=== PATIENT | male | born 1955 | race Caucasian/White ===

== ENCOUNTER → 2023-08-31 10:41 | Outpatient (REF) | payer MEDICARE, SELFPAY | LOC: RAD 10:41 | PROVIDERS: ATTENDING PHYSICIAN Physician Assistant | DX: Z11.1 Encounter for screening for respiratory tuberculosis (principal) | CPT/HCPCS: 71046 ==

== ENCOUNTER 2023-11-11 09:03 | Inpatient (IN) | payer MEDICARE, SELFPAY ==
[2023-11-10] VITALS (7 sets, daily range): BP systolic 114–193; BP diastolic 67–85; BMI 37.4; BMI 36.9
--- NOTE | 2023-11-10 11:25 | ED.CVA ---
History of Present Illness
General
Chief Complaint: CVA/TIA Symptoms
Source: patient and care tech
Exam Limitations: none
Time Seen by Provider: 11/10/23 10:28
Onset of Stroke Symptoms
Onset of symptoms known: Yes
Date of onset of symptoms: 11/08/23
Travel History
Have you had any contact with someone who has COVID-19?: No
Do you have any symptoms of coronavirus? Fever > 100 degrees, chills, cough, shortness of breath, sore throat, loss of taste or smell, muscle aches, or headache?: No
History of Present Illness
History of Present Illness:
60-year-old male with increased ataxia and difficulty with slurred speech x 2 days. Has been stable over the last 2 days. No unusual headache no new physical weakness or other complaints. Long history of strokes. Patient is on Eliquis. Took his
last dose this morning.
Past History
Past History
ED Past Medical History: CVA, HTN, Hypercholesterolemia, NIDDM and Other (Obstructive sleep apnea, morbid obesity, arthritis, constipation)
ED Past Surgical History: Appendectomy ( with Peritonitis), Orthopedic (Left knee total knee replacement, right total knee replacement) and Other (Hernia repair)
Social History
Tobacco: Non-smoker (Cigar once a month)
Alcohol: None
Drug: None
Personal:
Living: alone
Employment: Not employed
Family History
Family History: Other (Noncontributory)
Review of Systems
Review of Systems
All Other Systems: Not applicable
Constitutional: Denies fever
Respiratory: Reports no symptoms
Cardiac: Reports no symptoms
Phy Exam
Physical Exam
Physical Exam:
GENERAL: Alert and oriented in no apparent distress
EYE: Orbits normal.
NECK: Supple, no thyroid palpable
ENT: Pharynx without erythema
CARDIAC: Regular rate and rhythm without any obvious murmurs.
LUNGS: Clear breath sounds,normal
ABDOMEN: Soft, without focal tenderness or distention
NEUROLOGICAL: Alert and oriented , mild consistent slurred speech. No aphasia. Left arm drift and weakness. Left leg relatively normal. No other focality
SKIN: Warm and dry, no rash or lesion, no discoloration, skin intact.
MUSCULOSKELETAL: No edema,no deformity.Good color
PSYCH: Normal and appropriate interaction.
Course
Orders/Labs/Results
Orders:
Orders
11/10/23 10:36
CT Head W/o Iv Contrast Urgent
Comment:
Reason For Exam: Slurred speech/ataxia. Anticoagulated
Cardiac Monitoring- Treatment ONCE
IV Insert/Care/Rem.- Treatment PRN
11/10/23 10:37
Electrocardiogram (*1) Stat
Reason for Study: Other
Other Reason for Exam: neuro symptoms
EKG- Treatment ONCE
11/10/23 11:27
Basic Metabolic Panel Urgent
Complete Blood Count/With Diff Urgent
PTT Urgent
Prothrombin Time Urgent
11/10/23 12:20
[facility] [place] [facility] [facility] Routine
Comment:
Reason For Exam: ataxia, dysarthria
OK for patient to be off Cardiac Monitoring for MRI: Yes
Recent pill cam endoscopy?: No
11/10/23 12:59
MR Brain Without Contrast Routine
Reason For Exam: ataxia, dysarthria
OK for patient to be off Cardiac Monitoring for MRI: Yes
Recent pill cam endoscopy?: No
11/10/23 13:03
Admit/Transfer Patient As Directed
Co-Sign Provider:
Level of Care: Observation services
Assign to:: Telemetry
Physician / Group: Bhumi
Diagnosis: Acute stroke
Reason for Telemetry: CVA/TIA
Date to Stop Telemetry: 11/13/23
Time to Stop Telemetry: 11:00
11/10/23 13:06
Code Status As Directed
Resuscitation Status: Full Code
11/11/23 06:00
Cardiovascular Evaluation IN AM
Hemoglobin A1c [Glycohemoglobin (HgbA1c)] IN AM
11/13/23 11:00
DC Protocol for Telemetry ONCE
Abnormal Lab Results
11/10/23
11:27
RBC 4.67 L 10^6/uL
(4.70-6.10)
MPV 10.5 H fL
(7.4-10.4)
PT 15.5 H Sec
(11.4-14.6)
BUN 42 H mg/dl
(9-20)
Creatinine 1.8 H mg/dL
(0.7-1.3)
Glucose 175 H mg/dl
(70-99)
11/10/23 11:27
11/10/23 11:27
Vital Signs
Initial and Last Documented VS:
Initial Vital Signs
Temp Pulse Resp BP Pulse Ox
98.4 F 65 18 133/81 95
11/10/23 10:21 11/10/23 10:21 11/10/23 10:21 11/10/23 10:21 11/10/23 10:21
Last Documented Vital Signs
Temp Pulse Resp BP Pulse Ox
98.4 F 55 20 139/85 97
11/10/23 10:21 11/10/23 12:30 11/10/23 12:30 11/10/23 12:05 11/10/23 12:30
MDM/Problems Addressed
Differential Diagnosis Includes:
Symptoms consistent with new CVA however 2 days old and on DOAC. No acute treatment. Labs CT and will require admission for further care and evaluation.
*Pulse Oximetry
Patient hypoxic: no
*EKG
Interpreted by ED Provider?: Yes
Interpretation: abnormal
Comparison EKG: changes noted
Heart Rate: 59
Rate: bradycardiac
Rhythm: sinus
[place]: normal axis
Interval: first degree heart block
QRS Pattern: normal QRS
Ischemia: no ischemia
*Critical Care Note
Total Time (30-74mins, 75-104mins- exclusive of procedures): Not Applicable
Data Reviewed
Review of Other/Old Records Reveals: Labs, Records, Radiology Studies and Discharge Summary
ED Attending Note
-
Portions of this chart may have been created with voice recognition software.� Occasional wrong word or��sound alike� substitutions may have occurred due to the inherent limitations of voice recognition software.
Discharge Plan
Departure
Patient Disposition: Admit
Date of Disposition: 11/10/23
Time of Disposition: 12:07
Presentation/result/management discussed w/ accepting MD/DO: Hospitalist
Discharge Problem:
Ataxia/dysarthria, Suspect subacute CVA
Interventions
Interventions:
*General Assessment Last Done: 11/10/23 11:12
ED- Fall Risk Assessment Last Done: 11/10/23 11:13
*ED COVID-19 Vaccine History Last Done: 11/10/23 11:12
ED- Pulmonary Assessment Last Done: 11/10/23 11:13
ED- Neurological Assessment Last Done: 11/10/23 11:13
ED- Cardiac Assessment Last Done: 11/10/23 11:16
--- NOTE | 2023-11-10 11:26 | CON.NEURO4 ---
Addendum entered and electronically signed by Amado Keller MD 11/10/23 15:44:
I saw and evaluated the patient and reviewed neurofibrillary and agree denying the following comments:
68-year-old male with previous history of previous ischemic stroke, atrial fibrillation, diabetes, hyperlipidemia, obesity presented to hospital with approximately 2 days of slurred speech, balance difficulties and ataxia.
He has been compliant with aspirin as well as Eliquis twice daily no recent head or neck injuries.
Is been started on isoniazid for latent TB diagnosed on positive QuantiFERON test.
No recent bleeding issues, reports some occasional headaches and upper neck pain..
Neurologic examination shows moderate dysarthria, left arm downward drift
MRI brain shows an acute stroke in the right wicho ischemic no hemorrhage
Moderate to severe white matter ischemic disease with chronic stroke in the right ag radiata
Assessment: Most likely this is a stroke due to small vessel disease given the characteristic location in the wicho and characteristic risk factors of diabetes obesity hyperlipidemia. He does not classically embolic appearing stroke and this was
mechanical and this is unlikely an Eliquis failure. Unfortunately clopidogrel interacts with his isoniazid use for latent TB, and I do not feel that ticagrelor would be a great option for him to take together with Eliquis. He is largely maximized
on medical therapy as he is noncompliant with 80 mg atorvastatin 5 mg twice daily Eliquis and 81 mg aspirin.
Recommendations
-Hold Eliquis and restart on 11/11 at same dosing
-Continue aspirin 81 mg daily given per protocol interaction isoniazid and I do not feel that ticagrelor would be good option due to bleeding risks. Will consider aspirin/dipyramidoll but this has risks of headache commonly
-PT OT speech therapy
-Check carotid ultrasound and transthoracic echocardiogram
-Goal normotension and normoglycemia
Will follow
Original Note:
Consultation - Neurology 4
-
CONSULTING PHYSICIAN: Dr. Keller
REFERRING PHYSICIAN: Dr. Quintanilla
DICTATED BY: COLUMBA Hampton
DATE/TIME OF REQUEST: 11/10/2023
DATE/TIME OF CONSULTATION: 11/10/2023 1120
Reason for Consultation: slurred speech and ataxia
History of Present Illness:
This is a 68 year old male patient with a past medical history of stroke chronic left sided weakness and ambulates with cane, PAF on Eliquis, hyperlipidemia, NIDDM, JOAQUÍN, and arthritis who presented to the ER today with slurred speech and ataxia
starting approximately 2 days ago. He does admit that he is not exactly sure of onset, daily aid that is with him today noticed some speech changes and worsening of balance about 2 days ago but was more obvious today. He denies headache, trouble
with vision of dizziness, He does admit to some mild swallowing difficulty. He believes that when ambulating he is now leaning more towards the right and aide reports that it seems that speech is delayed as well as slurred. At baseline he is
fairly independent. He lives alone but does have daily help form 9-2. He denies any missed doses of Eliquis or ASA. He denies any recent illness.
Of note he was recently diagnosed with latent TB found on positive QuantiFERON TB Gold test. He was started on Isoniazid and Pyridoxine. Over the past month Trazodone was also discontinued and started on nightly Benadryl.
Past Medical History: strokes, PAF, HTN, Hypercholesterolemia, CHF, NIDDM, Other (Obstructive sleep apnea, morbid obesity, arthritis, constipation), latent TB, chronic kidney disease, insomnia, granulomatous perifolliculitis
Past Surgical History:
Appendectomy (with Peritonitis), Orthopedic (Left knee total knee replacement, right total knee replacement),(Hernia repair), RCEA
Social History
Tobacco: Non-smoker (Cigar once a month)
Alcohol: None
Drug: None
Personal:
Living: alone, with daily aid
Employment: Not employed
Family History:
Father-CAD, PAD, hypertension, diabetes
Mother- diabetes, arthritis, hypertension, CAD
Allergies: oxycodone
Home Medications: see below
Review of Symptoms:
Patient denies any fever, headache, chest pain, shortness of breath, GI or symptoms.
Vital Signs: see below
Physical Exam:
The patient is afebrile, heart sounds S1 and S2 are regular, no dyspnea
NIH Stroke Scale:
Given 3 points on NIH scale for mild dysarthria, LUE drift and left upper extremity ataxia
Neurologic Examination:
The patient is awake, alert and oriented x 3. He is able to follow commands and answer questions appropriately. There is dysarthia and mildly delayed speech. On cranial nerve assessment, pupils are 3 mm bilateral, round and reactive to light and
accommodation. Visual barron are full. Extraocular movements are intact. Facial sensations are intact and bilaterally symmetrical, there is no facial asymmetry. Hearing is intact bilaterally to normal conversation volume. Tongue palate and uvula are
midline. Sternocleidomastoid strengths are full bilaterally. Motor strengths are 5/5 bilateral lower extremities 4+/5 RUE, 5/5 RUE on medical research Gilbert scale. There is (+) LUE drift, no other drift noted no involuntary movement noted. Deep
tendon reflexes are trace bilateral upper and lower extremities and Babinski is absent bilaterally. Sensations of pain, touch, temperature and vibration are intact and bilaterally symmetrical. There was no extinction noted on double simultaneous
stimulation. Coordination is reduced finger to nose LUE.
Lab Results:see below
Neuro Imaging:
CT head (11/10/2023)
There are no acute intracranial abnormalities.
There is a 1.5 cm right-sided lacunar infarct
There is moderate diffuse cortical atrophy with moderate nonspecific white matter changes as described above.
Impression:
DEONTE DIAS is a 68 year old M who has presented to the hospital with slurred speech and ataxia
Differentials for the patient's presentation include acute stroke vs recurrence of stroke symptoms. Not likely TIA as symptoms have been ongoing for at least 2 days.
Recommendations:
-check MRI brain without contrast to evaluate for stroke
-MRA head/neck
-BP goal is normotension.
-Hold Eliquis until MRI brain results
-ASA 81 mg daily
-may need to consider alternate anticoagulation if acute stroke noted on MRI brain
-echo
-check hemoglobin A1C. Goal is normoglycemia.
-continue atorvastatin 80 mg by mouth daily at bedtime. Check LDL. Goal LDL after stroke is <70.
-PT/OT/ST evaluations
-DVT prophylaxis
-continue neurochecks and NIHSS scale per unit guidelines
Discussed patient care with patient, caregiver and neurologist.
Vital Signs and Labs
-
Vital Signs and Labs:
Vital Signs
Temp Pulse Resp BP Pulse Ox
98.4 F 57 24 123/70 97
11/10/23 10:21 11/10/23 10:52 11/10/23 10:52 11/10/23 11:10 11/10/23 11:13
Lab Results
11/10/23 11:27
11/10/23 11:27
PT 15.5 Sec (11.4-14.6) H 11/10/23 11:27
INR 1.22 11/10/23 11:27
APTT 32.6 Sec (23.4-35.0) 11/10/23 11:27
Sodium 137 mmol/L (135-145) 11/10/23 11:27
Potassium 4.8 mmol/L (3.5-5.1) 11/10/23 11:27
BUN 42 mg/dl (9-20) H 11/10/23 11:27
Glucose 175 mg/dl (70-99) H 11/10/23 11:27
Calcium 9.1 mg/dl (8.4-10.2) 11/10/23 11:27
Medication and Allergies
Home Medications
Home Medications
�Medication �Instructions �Recorded
atorvastatin 80 mg tablet 80 mg PO DAILY High cholesterol 02/04/19
finasteride 5 mg tablet 5 mg PO DAILY prostate 02/04/19
apixaban 5 mg tablet (Eliquis) 5 mg PO BID Blood clot 04/08/20
prevention/tx
docusate sodium 100 mg capsule 300 mg PO DAILY Constipation 04/08/20
metoprolol succinate 50 mg 50 mg PO BID #60 tabs 04/15/20
tablet,extended release 24 hr
polyethylene glycol 3350 17 gram 17 grams PO DAILY 07/23/21
oral powder packet
amlodipine 5 mg tablet 5 mg PO DAILY 11/10/23
aspirin 81 mg tablet,delayed 81 mg PO DAILY 11/10/23
release
cyclobenzaprine 10 mg tablet 20 mg PO DAILYPRN PRN muscle spasms 11/10/23
dapagliflozin propanediol 10 mg 10 mg PO DAILY 11/10/23
tablet (Farxiga)
diphenhydramine HCl 25 mg capsule 25 mg PO HS 11/10/23
(Banophen)
furosemide 20 mg tablet 20 mg PO DAILY 11/10/23
isoniazid 300 mg tablet 300 mg PO HS 11/10/23
lisinopril 40 mg tablet 40 mg PO DAILY 11/10/23
melatonin 10 mg tablet 20 - 30 mg PO HS 11/10/23
nystatin 100,000 unit/gram topical 1 applic topical .2-3 TIMES A WEEK 11/10/23
cream apply to groin
pyridoxine (vitamin B6) 50 mg 50 mg PO HS 11/10/23
tablet
varenicline 0.03 mg/spray nasal 1 spray intranasal Q12H PRN dry 11/10/23
spray (Tyrvaya) eyes
Allergies
Allergies
Allergy/AdvReac Type Severity Reaction Status Date / Time
oxycodone AdvReac Itching, Verified 11/10/23 10:21
Blanching
of skin
[2023-11-10 11:40] LABS: % Basophils 0.7 % (0-2); % Immature Granulocytes 0.3 % (0-0.5); % Lymphocytes 30.2 % (20.5-51.1); % Monocytes 5.3 % (1.7-9.3); % Neutrophils 60.5 % (42.2-75.2); Absolute Basophils 0.1 10^3/uL (0-0.2); Absolute Eosinophils 0.2 10^3/uL (0-0.7); Absolute Lymphocytes 2.1 10^3/uL (1.2-3.4); Absolute Monocytes 0.4 10^3/uL (0.1-0.6); Absolute Neutrophils 4.2 10^3/uL (1.4-6.5); Hematocrit 41.3 % (39.0-52.0); Hemoglobin 14.2 g/dL (13.0-18.0); Mean Corp Hgb Conc. 34.4 g/dL (33.0-37.0); Mean Corpuscular Hgb 30.4 pg (27.0-31.0); Mean Corpuscular Volume 88.4 fL (80.0-94.0); Mean Platelet Volume 10.5 fL (7.4-10.4); Nucleated Red Blood Cells % 0 % (-); Platelet Count 184 10^3/uL (130-400); Red Blood Cell Count 4.67 10^6/uL (4.70-6.10); Red Cell Dist. Width 13.2 % (11.5-14.5); White Blood Cell Count 6.9 10^3/uL (4.8-10.8)
[2023-11-10 11:49] LABS: INR 1.22; PT 15.5 Sec (11.4-14.6)
[2023-11-10 11:50] LABS: APTT 32.6 Sec (23.4-35.0)
[2023-11-10 12:01] LABS: Blood Urea Nitrogen 42 mg/dl (9-20); Calcium 9.1 mg/dl (8.4-10.2); Carbon Dioxide 30 mmol/L (22-30); Chloride 103 mmol/L (98-107); Estimated Creatinine Clearance 54 ml/min; Glucose 175 mg/dl (70-99); Potassium 4.8 mmol/L (3.5-5.1); Sodium 137 mmol/L (135-145); eGFR 40.49
--- NOTE | 2023-11-10 13:08 | HPS.HSE ---
Family Physician
-
Family Physician: Doris Claudio
Chief Complaint
-
Dysarthria, lethargy, gait instability
History of Present Illness
68-year-old male who developed dysarthria about a week ago progressing to gait instability and lethargy. States he has had 7 strokes in the past. Claims he is compliant with all his home medications including aspirin and Eliquis.
We were asked to admit him to the hospital for stroke evaluation.
He lives alone, has an aide 6 days a week. Usually uses a cane to ambulate except when he is out of the house he uses a walker. Denies any recent illnesses. Has had a cough for the past 2 weeks.
Diagnosed with latent tuberculosis in September and has been on isoniazid under the discretion of infectious disease.
Denies any major medication changes. About a month ago his lisinopril dose was doubled from 20 to 40 mg daily.
Medical History
Past Medical History
Past Medical History: Reports Other
Additional Past Medical History:
Multiple strokes -residual left upper extremity weakness
Essential hypertension
DM2
Hyperlipidemia
Paroxysmal atrial fibrillation
CKD 3A
JOAQUÍN
Chronic insomnia
Mild persistent asthma
Nephrolithiasis
Past Surgical History: Reports Appendectomy, Orthopedic and Other
Additional Past Surgical History:
Bilateral total knee replacements
Right shoulder surgery
Hernia repair
Social History
Tobacco: Smoker
Alcohol: Occasional
Drug: None
Personal: Single
Living: Alone
Family History
Family History: Not pertinent
Allergies / Home Medications
Allergies reflects when Allergies were last updated in [facility].
Home Medications with original date entered in [facility]
Allergy/Medication List:
Allergies
Allergy/AdvReac Type Severity Reaction Status Date / Time
oxycodone AdvReac Itching, Verified 11/10/23 10:21
Blanching
of skin
Home Medications
atorvastatin 80 mg tablet 80 mg PO DAILY High cholesterol 02/04/19
finasteride 5 mg tablet 5 mg PO DAILY prostate 02/04/19
apixaban 5 mg tablet (Eliquis) 5 mg PO BID Blood clot prevention/tx 04/08/20
docusate sodium 100 mg capsule 300 mg PO DAILY Constipation 04/08/20
metoprolol succinate 50 mg tablet,extended release 24 hr 50 mg PO BID #60 tabs 04/15/20
polyethylene glycol 3350 17 gram oral powder packet 17 grams PO DAILY 07/23/21
amlodipine 5 mg tablet 5 mg PO DAILY 11/10/23
aspirin 81 mg tablet,delayed release 81 mg PO DAILY 11/10/23
cyclobenzaprine 10 mg tablet 20 mg PO DAILYPRN PRN muscle spasms 11/10/23
dapagliflozin propanediol 10 mg tablet (Farxiga) 10 mg PO DAILY 11/10/23
diphenhydramine HCl 25 mg capsule (Banophen) 25 mg PO HS 11/10/23
furosemide 20 mg tablet 20 mg PO DAILY 11/10/23
isoniazid 300 mg tablet 300 mg PO HS 11/10/23
lisinopril 40 mg tablet 40 mg PO DAILY 11/10/23
melatonin 10 mg tablet 20 - 30 mg PO HS 11/10/23
nystatin 100,000 unit/gram topical cream 1 applic topical .2-3 TIMES A WEEK apply to groin 11/10/23
pyridoxine (vitamin B6) 50 mg tablet 50 mg PO HS 11/10/23
varenicline 0.03 mg/spray nasal spray (Tyrvaya) 1 spray intranasal Q12H PRN dry eyes 11/10/23
Review of Systems
-
History Source: Patient
A 12 point ROS was completed and negative except as noted: Yes
Neurological: Reports Other (Dysarthria, gait instability)
Physical Exam
Vital Signs
Vital Signs
Temp Pulse Resp BP Pulse Ox
98.4 F 57 24 123/70 97
11/10/23 10:21 11/10/23 10:52 11/10/23 10:52 11/10/23 11:10 11/10/23 11:13
Physical Exam
General: Well Developed, Well Nourished, No Apparent Distress and Comfortable
HEENT: NormoCephalic, Anicteric and Moist mucous membranes
Respiratory: Clear
Cardiac: S1/S2 and Regular Rhythm
GI: Soft, Non Tender and Non Distended
Genito-urinary: Deferred by me
Musculoskeletal: No Clubbing, No Cyanosis and No Edema
Skin: Warm and Dry
Neuro: AO x 3 and Other (Left upper extremity motor weakness 4 out of 5 compared to right upper extremity)
Hematologic/Lymphatic: No Lymphadenopathy
Psych: Calm
Laboratory Results
-
11/10/23 11:27
11/10/23 11:27
Laboratory Results
PT 15.5 Sec (11.4-14.6) H 11/10/23 11:27
INR 1.22 11/10/23 11:27
APTT 32.6 Sec (23.4-35.0) 11/10/23 11:27
Impression/Plan
-
Subacute dysarthria, ataxia -rule out new stroke. Brain MRI ordered, to be completed now. CT head shows no acute disease, does show 1.5 cm right-sided lacunar infarct. Moderate diffuse cortical atrophy, moderate nonspecific white matter changes.
Admit to telemetry. Consult neurology. PT/OT. Hold Eliquis pending MRI results. Continue aspirin, atorvastatin.
Discussed with Janay Martines from the neurology service.
DM2 without hyperglycemia -diet controlled. Check hemoglobin A1c.
Essential hypertension -blood pressure currently controlled.
CKD 3 AA -renal function appears to be at baseline.
Hyperlipidemia - continue atorvastatin.
Paroxysmal atrial fibrillation -hold Eliquis as above.
Latent tuberculosis -continue isoniazid, pyridoxine.
JOAQUÍN
Obesity due to excess calories
Full code
--- NOTE | 2023-11-10 16:35 | VATNOTE ---
IV line , US guided by ER staff, came out after MRI; attempted x3 for IV restart; unsuccessful. Will place midline.
[2023-11-10 17:30] LABS: Glucose - Point of Care 113 mg/dl (70-99)
[2023-11-10] MEDS: NOVOLOG FLEXPEN-LOW RESISTANCE SC (17:54)
[2023-11-10] MEDS: LOVENOX 40 MG SC (18:17)
[2023-11-10 20:52] LABS: Glucose - Point of Care 163 mg/dl (70-99)
[2023-11-10] MEDS: TOPROL XL 50 MG PO (21:23)
[2023-11-10] MEDS: INH 300 MG PO (21:23)
[2023-11-10] MEDS: BENADRYL 25 MG PO (21:23)
[2023-11-10] MEDS: VITAMIN B-6 50 MG PO (21:24)
[2023-11-11 03:05] VITALS: BP 149/70
[2023-11-11 05:31] LABS: HDL Cholesterol 25 mg/dl; LDL Cholesterol, Calculated 46 mg/dl; Total Cholesterol 120 mg/dl (50-199); Triglyceride 248 mg/dl (10-149); Very Low Density Lipoprotein 49 mg/dl (0-30)
[2023-11-11 06:00] VITALS: BMI 36.5
[2023-11-11 07:52] VITALS: BP 155/86
[2023-11-11] MEDS: COLACE 300 MG PO (08:17)
[2023-11-11] MEDS: LIPITOR 80 MG PO (08:17)
[2023-11-11] MEDS: AGGRENOX 1 CAPSULE PO ×2 (08:17→17:34)
[2023-11-11] MEDS: PROSCAR 5 MG PO (08:18)
[2023-11-11] MEDS: TOPROL XL 50 MG PO (08:18)
[2023-11-11] MEDS: LASIX 20 MG PO (08:18)
[2023-11-11] MEDS: FARXIGA 10 MG PO (08:18)
[2023-11-11] MEDS: MIRALAX 17 GRAMS PO (08:18)
[2023-11-11 08:21] LABS: Glucose - Point of Care 169 mg/dl (70-99)
--- NOTE | 2023-11-11 08:35 | PTOTSP ---
Speech Language Pathology
Pt known to CAPSULE INSPECTOR at with previous VSE completed x2 with thickened liquids recommended x1. Pt was noncompliant with modifications, but did not develop PNA. OP CAPSULE INSPECTOR therapy provided from 09/28/18-11/21/18. At time of discharge, pt had mild to mod
cognitive deficits, mild expressive aphasia, and mild dysarthria at time of discharge.
Pt seen for speech/language evaluations. Mild-mod dysarthria noted with incoordination. Poor breath support also noted with average maximum phonation time (MPT) 6 seconds. Language evaluated via the Quick Aphasia Battery (QAB), form 1. Pt with
an overall score of 8.94, indicative of overall language skills WFL. Pt with the following scores on the following subtests: word comprehension= 10.00 (WNL); sentence comprehension= 6.67 (mod); word finding= 10.00 (WNL); grammatical construction=
8.88 (mild); speech motor programming= 10.00 (WNL); repetition= 7.92 (mild); reading= 8.33 (mild).
Pt also seen for clinical bedside swallow evaluation. P.O. trials of puree, regular solids, and thin liquids provided. Adequate mastication, bolus formation, and A-P transit noted. No overt signs of aspiration, but pt with a hx of silent
aspiration.
Recommend:
(1) Regular solids/thin liquids
(2) VSE
(3) Aspiration precautions: sit upright, slow rate, single sips
(4) Meds as tolerated
(5) CAPSULE INSPECTOR to continue to follow
[2023-11-11] MEDS: NOVOLOG FLEXPEN-LOW RESISTANCE 1 UNITS SC (08:41)
[2023-11-11 09:30] LABS: Glycohemoglobin (HgbA1c) 7.8 % (4.0-5.6)
--- NOTE | 2023-11-11 11:00 | PTOTSP ---
Speech Language Pathology
VIDEOFLUOROSCOPIC SWALLOWING EXAMINATION (VSE) completed. Overall, pt with mild oropharyngeal dysphagia. Improved from VSE in 2019. Penetration noted at times with aspiration x1 with thin liquids, eliminated with either chin tuck or head turn L.
Recommend:
(1) Regular solids/thin liquids
(2) Aspiration precautions: sit upright, slow rate, single cup sips with use of chin tuck or head turn L, intermittent throat clear/reswallow
(3) Meds as tolerated
(4) DAIRY SCIENCE TEACHER to continue to follow
--- NOTE | 2023-11-11 11:21 | W.PN.NEURO.1 ---
Today's Communication / Plan
-
-Resume apixaban at regular dosing 5 mg twice daily tomorrow
-Check TTE
-Stop aspirin and substitute Aggrenox 25/100 BID, let patient know to watch for new headaches which can be seen as side effect from this medication
-Work on diabetes for stroke prevention
-PT/OT speech therapies
-No barriers to discharge from my standpoint
Neuro Assessment/Plan
Assessment
68-year-old male with a past ministry of obesity, hypertension, Kalosis, hyperlipidemia presented to hospital with acute onset of imbalance and ataxia dysarthria.
Has been compliant with Eliquis and aspirin with no missed doses
MRI brain shows an acute ischemic stroke in the right wicho explaining symptoms.
Carotid ultrasound with no significant carotid stenosis
LDL is 46 triglycerides 248 hemoglobin A1c is 7.8
Given the pattern and location of the stroke on brain MRI this is most likely due to small vessel disease rather than cardioembolic stroke I do not feel it represents an Eliquis failure.
Patient largely maximized on medical therapy with LDL at goal although still does have A1c of 7.8 which could be modifiable risk factor
Patient was compliant with aspirin 81 mg daily and would not be able to take clopidogrel due to interaction with medications for latent TB
Subjective/Objective
Subjective Data
Date of Service: November 11, 2023
No acute events, patient feels like is doing a bit better, speech somewhat improved although not normal, denies headache, discussed medication switch from aspirin to aggrenox and resuming Eliquis tomorrow, discussed causes of stroke.
Objective Data
Vital Signs
Temp Pulse Resp BP Pulse Ox
98.6 F 62 16 155/86 97
11/11/23 07:52 11/11/23 07:52 11/11/23 07:52 11/11/23 07:52 11/11/23 07:52
Lab Results
11/10/23 11:27
11/10/23 11:27
PT 15.5 Sec (11.4-14.6) H 11/10/23 11:27
INR 1.22 11/10/23 11:27
APTT 32.6 Sec (23.4-35.0) 11/10/23 11:27
Sodium 137 mmol/L (135-145) 11/10/23 11:27
Potassium 4.8 mmol/L (3.5-5.1) 11/10/23 11:27
BUN 42 mg/dl (9-20) H 11/10/23 11:27
Glucose 175 mg/dl (70-99) H 11/10/23 11:27
Calcium 9.1 mg/dl (8.4-10.2) 11/10/23 11:27
LDL Cholesterol, Calc 46 mg/dl 11/11/23 04:53
Patient Allergies
oxycodone Adverse Reaction (Verified 11/10/23 10:21)
Itching, Blanching of skin
Review of Systems
-
History Source: Patient
All other systems: Reviewed and negative
Constitutional: No Symptoms
EENT: No Symptoms Reported
Respiratory: No Symptoms
Cardiac: No Symptoms
Abdomen/GI: No Symptoms
Genitourinary: No Symptoms
Musculoskeletal: No Symptoms
Skin: No Symptoms
Neuro: Weakness and Speech Problem
Endocrine: No Symptoms
Hematologic / Lymphatic: No Symptoms
Allergy / Immunology: No Symptoms
Physical Exam
-
General: Comfortable
Eyes: No Ptosis
HEENT: Normocephalic
Neck: No Bruits Bilaterally
Respiratory: Clear to Auscultation
Cardiac: Regular Rhythm
GI: Normal Bowel Sounds
Skin: Unremarkable
Extremities: No Clubbing
Psych: Unremarkable
Extended Neurological Exam
Mood & Affect: Mood Unremarkable and Affect Unremarkable
Attention Span & Concentration: Awake, Alert and Interactive
Memory: Unremarkable
Tremor: Hand Tremor Absent
Involuntary Movement: None
Speech: Quality Unremarkable, Quantity Unremarkable and Dysarthric; Negative Expressive Aphasia or Receptive Aphasia
Cranial Nerve II: Left Eye: Pupillary Reactivity Unremarkable and Pupillary Size Unremarkable
Cranial Nerve II: Right Eye: Pupillary Reactivity Unremarkable and Pupillary Size Unremarkable
Cranial Nerves III, IV, : Extraocular Movement: Extraocular Movement Full in all Directions
Cranial Nerve VII: Facial Symmetry: Other (Left facial weakness)
Muscle Strength, Overall: Other (Left arm 4/5)
Pronator Drift: Drift in Left Upper Extremity
Data Reviewed
-
CT Head: Report Reviewed and Image Reviewed
MRI Head: Report Reviewed and Image Reviewed
MRA Head: Report Reviewed and Image Reviewed
Carotid Ultrasound: Report Reviewed
--- NOTE | 2023-11-11 11:52 | CM ---
Patient seen at bedside, Patient was admitted as OBS/PINEDA status but changed to INP status today. Patient previously lived in a trailer with a ramp for access. Patient states that he plans to return home but is awaiting blood work. CM will return to
review completed assessment.
[2023-11-11 12:26] LABS: Glucose - Point of Care 148 mg/dl (70-99)
[2023-11-11] MEDS: NOVOLOG FLEXPEN-LOW RESISTANCE SC ×2 (12:40→17:41)
--- NOTE | 2023-11-11 13:47 | VNURNOTE ---
Home Health Liaison met with patient at 1230 to discuss [facility] nurse/therapy, visits, schedule and homebound status. Patient is agreeable and understands that visits at home will be 2-3 x per week to assess and teach medical management.
[facility] brochure provided with contact information. Patient is aware that [facility] will contact him for start of care in 1-2 days after discharge from .
[facility] referral completed in [facility].
--- NOTE | 2023-11-11 14:05 | CARDSERVLU ---
Echocardiogram with [facility] completed after protocol screening completed. Allergies verified.
Patent IV site: __R arm midline___
IV site flushed with 0.9% NaCl pre and post administration.
Diluted bolus method utilized to enhance visualization of ventricular garcía.
Total volume given: __3.5__ mL
Patient tolerated all procedures well without complications.
--- NOTE | 2023-11-11 14:09 | W.PN.HOSP.TC ---
Today's Communication/Plan
-
Echocardiogram
Discharge
Assessment / Plan
Assessment / Plan
Gen-AAOx3, NAD, obese
HEENT-NC, AT, anicteric, clear oral mm
Neck-supple
CV-reg, no M, +S1/S2
Lungs-clear B/L
Abd-soft, NT, ND
Ext-no edema
Musculoskeletal-no cyanosis, clubbing
Skin-warm and dry
Neuro-grossly non-focal
Psych-calm, cooperative
Acute stroke -involving the right pontomedullary junction. Brain MRI reviewed. No cerebral vascular stenosis or occlusion noted. Carotid ultrasound noted, no significant occlusion.
Appreciate neurology input. Await transthoracic echocardiogram.
Resume Eliquis starting tomorrow as per neurology. Discontinue aspirin and start Aggrenox.
Discussed with patient importance of lifestyle changes including diet, exercise, weight loss and diabetes/hypertension/lipid control to reduce stroke risk.
DM2 without hyperglycemia -he is on dapagliflozin 10 mg daily at home. Glucose 169 this morning. Hemoglobin A1c 7.8%. Encouraged him to try to lose weight. Can add Januvia 100 mg daily. Follow-up closely with PCP.
Essential hypertension -pressures are relatively high. At home he is on amlodipine, furosemide, lisinopril, metoprolol succinate. Resume home meds.
CKD 3a -renal function appears to be at baseline.
Hyperlipidemia - continue atorvastatin. LDL 46, total cholesterol 120, triglycerides 248, HDL 25.
Paroxysmal atrial fibrillation -resume Eliquis tomorrow.
Latent tuberculosis -continue isoniazid, pyridoxine.
JOAQUÍN
Obesity due to excess calories
Full code
Dispo -anticipate discharge this afternoon if echocardiogram unremarkable. Outpatient follow-up. Patient agreeable. Neurology agrees with plan.
35-minutes spent in discharge process.
Anticipated Discharge: Today
Subjective/Interval History
-
Date of Service: November 11, 2023
Patient seen and examined. No complaints today. Eager to go home this afternoon.
Objective Data
-
Vital Signs:
Vital Signs
Temp Pulse Resp BP Pulse Ox
98.6 F 62 16 155/86 97
11/11/23 07:52 11/11/23 07:52 11/11/23 07:52 11/11/23 07:52 11/11/23 07:52
I&O
11/10/23 11/11/23 11/12/23
06:59 06:59 06:59
Intake Total 600 / 600
Balance 600 / 600
Review of Systems
-
History Source: Patient
All other systems: Reviewed and negative
[2023-11-11 15:22] VITALS: BP 151/69
[2023-11-11] MEDS: NORVASC 5 MG PO (16:00)
[2023-11-11 17:12] LABS: Glucose - Point of Care 147 mg/dl (70-99)
--- NOTE | 2023-11-11 17:25 | W.DS.TRANS ---
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
-
Discharge Instructions:
Discharge Diagnosis/Procedures Acute stroke
Diet Low Fat,Low Cholesterol,Diabetic, Carb
Controlled
Activity As tolerated
Driving Restrictions No driving
Bathing Restrictions None
Instructions:
Stand-Alone Forms:
Changes to Home Medications: Yes
Discharge Medications:
DC Medications w/original date entered in Apartment [facility]
atorvastatin 80 mg tablet 80 mg PO DAILY High cholesterol 02/04/19
finasteride 5 mg tablet 5 mg PO DAILY prostate 02/04/19
apixaban 5 mg tablet (Eliquis) 5 mg PO BID Blood clot prevention/tx 04/08/20
docusate sodium 100 mg capsule 300 mg PO DAILY Constipation 04/08/20
metoprolol succinate 50 mg tablet,extended release 24 hr 50 mg PO BID #60 tabs 04/15/20
polyethylene glycol 3350 17 gram oral powder packet 17 grams PO DAILY Constipation 07/23/21
amlodipine 5 mg tablet 5 mg PO DAILY Blood Pressure 11/10/23
cyclobenzaprine 10 mg tablet 20 mg PO DAILYPRN PRN muscle spasms 11/10/23
dapagliflozin propanediol 10 mg tablet (Farxiga) 10 mg PO DAILY Diabetes 11/10/23
diphenhydramine HCl 25 mg capsule (Banophen) 25 mg PO HS Sleep 11/10/23
furosemide 20 mg tablet 20 mg PO DAILY Fluid Retention/Swelling 11/10/23
isoniazid 300 mg tablet 300 mg PO HS TB 11/10/23
lisinopril 40 mg tablet 40 mg PO DAILY Blood Pressure 11/10/23
melatonin 10 mg tablet 20 - 30 mg PO HS Sleep 11/10/23
nystatin 100,000 unit/gram topical cream 1 applic topical .2-3 TIMES A WEEK apply to groin 11/10/23
pyridoxine (vitamin B6) 50 mg tablet 50 mg PO HS Supplement 11/10/23
varenicline 0.03 mg/spray nasal spray (Tyrvaya) 1 spray intranasal Q12H PRN dry eyes 11/10/23
aspirin 25 mg-dipyridamole 200 mg capsule,ext.release 12 hr multiphase 1 cap PO BID #60 caps 11/11/23
sitagliptin phosphate 100 mg tablet (Januvia) 100 mg PO DAILY #30 tabs 11/11/23
Home Medication Changes
Stop aspirin
Pending Results: No
[2023-11-11] MEDS: LOVENOX 40 MG SC (17:34)
== END 2023-11-11 18:22 | disposition home or self-care (01) | DRG 65 ==
LOC: 3 WEST ACU 09:03
PROVIDERS: Nurse Practitioner Adult Health; ADMITTING PHYSICIAN Hospitalist; CONSULT PHYSICIAN Student in an Organized Health Care Education/Training Program; EMERGENCY PHYSICIAN Emergency Medicine; FAMILY PHYSICIAN Nurse Practitioner Primary Care
DX: I63.9 Cerebral infarction, unspecified (principal); I13.0 Hypertensive heart and chronic kidney disease with heart failure and stage 1 through stage 4 chronic kidney disease, or unspecified chronic kidney disease; I69.354 Hemiplegia and hemiparesis following cerebral infarction affecting left non-dominant side; R27.0 Ataxia, unspecified; R47.1 Dysarthria and anarthria; N18.31 Chronic kidney disease, stage 3a; E11.22 Type 2 diabetes mellitus with diabetic chronic kidney disease; E66.01 Morbid (severe) obesity due to excess calories; E78.00 Pure hypercholesterolemia, unspecified; I44.0 Atrioventricular block, first degree; G47.33 Obstructive sleep apnea (adult) (pediatric); I50.9 Heart failure, unspecified; K59.00 Constipation, unspecified; I48.0 Paroxysmal atrial fibrillation; F51.04 Psychophysiologic insomnia; J45.30 Mild persistent asthma, uncomplicated; M19.90 Unspecified osteoarthritis, unspecified site; F17.200 Nicotine dependence, unspecified, uncomplicated; Z96.653 Presence of artificial knee joint, bilateral; Z60.2 Problems related to living alone; Z68.36 Body mass index [BMI] 36.0-36.9, adult; Z79.01 Long term (current) use of anticoagulants; Z22.7 Latent tuberculosis; Z87.442 Personal history of urinary calculi; Z88.5 Allergy status to narcotic agent; Z79.82 Long term (current) use of aspirin; Z79.84 Long term (current) use of oral hypoglycemic drugs; Z83.3 Family history of diabetes mellitus; Z82.49 Family history of ischemic heart disease and other diseases of the circulatory system
CPT/HCPCS: 70450; 70544; 70551; 74230; 80048; 80061; 82962; 83036; 85025; 85610; 85730; 92523; 92610; 92611; 93005; 93306; 93880; 97162; 97166; 99285; Q9950

== ENCOUNTER 2023-12-23 09:07 | Outpatient (RCR) | payer MEDICARE, SELFPAY | END 2023-12-23 23:59 | disposition home or self-care (01) | LOC: ROT 09:07 | PROVIDERS: ATTENDING PHYSICIAN Nurse Practitioner Primary Care | DX: I69.322 Dysarthria following cerebral infarction (principal); I69.391 Dysphagia following cerebral infarction; R13.13 Dysphagia, pharyngeal phase | CPT/HCPCS: 92523; 92610; 97110; 97112; 97163; 97167 ==

== ENCOUNTER 2023-12-29 11:20 | Emergency (ER) | payer MEDICARE, SELFPAY ==
[2023-12-29 11:49] VITALS: BP 106/69
--- NOTE | 2023-12-29 11:49 | ED.PDOC.TRB ---
ED Provider Triage
-
Patient seen by provider in Triage?: Seen in Triage
68M presenting to ED for decreased PO intake, persistent diarrhea and family reports lethargy worsening over last 1-2 weeks. Increased fatigue without fevers. PCP recommended to come to ED. Patient in NAD, AAO. Labs started. stable for WR
[2023-12-29 12:07] LABS: % Basophils 0.9 % (0-2); % Eosinophils 2.5 % (0-6); % Immature Granulocytes 0.2 % (0-0.5); % Lymphocytes 26.3 % (20.5-51.1); % Monocytes 6.5 % (1.7-9.3); % Neutrophils 63.6 % (42.2-75.2); Absolute Basophils 0.1 10^3/uL (0-0.2); Absolute Eosinophils 0.2 10^3/uL (0-0.7); Absolute Lymphocytes 2.1 10^3/uL (1.2-3.4); Absolute Monocytes 0.5 10^3/uL (0.1-0.6); Absolute Neutrophils 5.1 10^3/uL (1.4-6.5); Hematocrit 46.6 % (39.0-52.0); Hemoglobin 16.2 g/dL (13.0-18.0); Mean Corp Hgb Conc. 34.8 g/dL (33.0-37.0); Mean Corpuscular Hgb 30.8 pg (27.0-31.0); Mean Corpuscular Volume 88.6 fL (80.0-94.0); Nucleated Red Blood Cells % 0 % (-); Platelet Count 188 10^3/uL (130-400); Red Blood Cell Count 5.26 10^6/uL (4.70-6.10); Red Cell Dist. Width 14.5 % (11.5-14.5); White Blood Cell Count 8.1 10^3/uL (4.8-10.8)
[2023-12-29 12:21] LABS: ALT (SGPT) 15 U/L (0-50); AST (SGOT) 24 U/L (17-59); Albumin 4.7 g/dl (3.5-5.0); Alkaline Phosphatase 42 U/L (38-126); Blood Urea Nitrogen 31 mg/dl (9-20); Calcium 9.7 mg/dl (8.4-10.2); Carbon Dioxide 19 mmol/L (22-30); Chloride 109 mmol/L (98-107); Glucose 97 mg/dl (70-99); Potassium 5.1 mmol/L (3.5-5.1); Sodium 140 mmol/L (135-145); Total Bilirubin 1.2 mg/dl (0.2-1.3); Total Protein 7.5 g/dl (6.3-8.2); eGFR 46.64
--- NOTE | 2023-12-29 13:51 | ED.GENMED ---
History of Present Illness
<Susie Fountain PA-C - Last Filed: 12/29/23 20:03>
General
Chief Complaint: Abdominal Symptoms
Source: patient
Exam Limitations: none
Time Seen by Provider: 12/29/23 13:50
Nursing documentation reviewed up to this point in time: agreed with
Travel History
Have you had any contact with someone who has COVID-19?: No
Do you have any symptoms of coronavirus? Fever > 100 degrees, chills, cough, shortness of breath, sore throat, loss of taste or smell, muscle aches, or headache?: No
History of Present Illness
History of Present Illness:
This is a 68-year-old male with a past medical history of A-fib on Eliquis, type 2 diabetes, JOAQUÍN, HTN, HLP presenting to the ER today with concerns of diarrhea and nausea for the past 2 weeks. Patient states that the symptoms started after his
third dose of Trulicity, he just started this medication. He has multiple episodes throughout the day and has tried imodium without relief. Patient denies any abdominal pain, fevers or chills. Patient denies any blood in his stools. Patient does
have a hx of constipation in which he takes a daily bowel regimen but he recently stopped this recently due to the diarrhea. Patient denies any recent antibiotic use or recent travel. Patient states that he has overall been feeling weaker and
lethargic. Of note, patient had a stroke 6 weeks ago and has residual left sided weakness and uses a cane. Patient denies any headache, chest pain, shortness of breath.
Past History
<Susie Fountain PA-C - Last Filed: 12/29/23 20:03>
Past History
ED Past Medical History: CVA, HTN, Hypercholesterolemia, NIDDM and Other (Obstructive sleep apnea, morbid obesity, arthritis, constipation)
ED Past Surgical History: Appendectomy ( with Peritonitis), Orthopedic (Left knee total knee replacement, right total knee replacement) and Other (Hernia repair)
Social History
Tobacco: Non-smoker (Cigar once a month)
Alcohol: None
Drug: None
Personal:
Living: alone
Employment: Not employed
Family History
Family History: Other (Noncontributory)
Review of Systems
<Susie Fountain PA-C - Last Filed: 12/29/23 20:03>
Review of Systems
All Other Systems: ROS reviewed and negative except as documented in HPI and ROS
Phy Exam
<Susie Fountain PA-C - Last Filed: 12/29/23 20:03>
Physical Exam
Physical Exam:
General: Patient is well appearing and in no acute distress; non-toxic
Skin: Warm and dry, no rashes or lesions
Head: Normocephalic, atraumatic
Eyes: Sclera non-icteric. EOMs intact. PERRLA.
Cardiac: Regular rate and rhythm.
Peripheral Vascular: No lower extremity swelling or edema.
Pulm: Normal respiratory effort
Abdomen: No abdominal tenderness to palpation, no palpable masses.
Neuro: CN II-XII intact, no focal neurologic deficits. Patient does have some residual left sided weakness from prior stroke.
Psychiatric: Appropriate mood and affect.
Course
<Susie Fountain PA-C - Last Filed: 12/29/23 20:03>
Orders/Labs/Results
Orders:
Orders
12/29/23 12:00
Complete Blood Count/With Diff Urgent
Comprehensive Metabolic Panel Urgent
12/29/23 14:10
0.9% Sodium Chloride 500 ml [Nss] 500 ml IV BOLUS
12/29/23 14:46
Ondansetron Injectable [Zofran] 4 mg IV NOW STA
Abnormal Lab Results
12/29/23
12:00
Chloride 109 H mmol/L
(98-107)
Carbon Dioxide 19 L mmol/L
(22-30)
BUN 31 H mg/dl
(9-20)
Creatinine 1.6 H mg/dL
(0.7-1.3)
12/29/23 12:00
12/29/23 12:00
Vital Signs
Initial and Last Documented VS:
Initial Vital Signs
Temp Pulse Resp BP Pulse Ox
98.0 F 74 18 106/69 94
12/29/23 11:49 12/29/23 11:49 12/29/23 11:49 12/29/23 11:49 12/29/23 11:49
Last Documented Vital Signs
Temp Pulse Resp BP Pulse Ox
98.0 F 75 18 110/70 95
12/29/23 11:49 12/29/23 15:00 12/29/23 15:00 12/29/23 15:00 12/29/23 15:00
<Ralph Coombs, DO - Last Filed: 12/29/23 14:56>
Orders/Labs/Results
Orders:
Orders
12/29/23 12:00
Complete Blood Count/With Diff Urgent
Comprehensive Metabolic Panel Urgent
12/29/23 14:10
0.9% Sodium Chloride 500 ml [Nss] 500 ml IV BOLUS
12/29/23 14:46
Ondansetron Injectable [Zofran] 4 mg IV NOW STA
Abnormal Lab Results
12/29/23
12:00
Chloride 109 H mmol/L
(98-107)
Carbon Dioxide 19 L mmol/L
(22-30)
BUN 31 H mg/dl
(9-20)
Creatinine 1.6 H mg/dL
(0.7-1.3)
12/29/23 12:00
12/29/23 12:00
Vital Signs
Initial and Last Documented VS:
Initial Vital Signs
Temp Pulse Resp BP Pulse Ox
98.0 F 74 18 106/69 94
12/29/23 11:49 12/29/23 11:49 12/29/23 11:49 12/29/23 11:49 12/29/23 11:49
Last Documented Vital Signs
Temp Pulse Resp BP Pulse Ox
98.0 F 75 18 110/70 95
12/29/23 11:49 12/29/23 15:00 12/29/23 15:00 12/29/23 15:00 12/29/23 15:00
<Susie Fountain PA-C - Last Filed: 12/29/23 20:03>
MDM/Problems Addressed
Differential Diagnosis Includes:
ddx include gastroenteritis, medication reaction, colitis, c diff infection, overuse of laxatives
MDM/Problems Addressed:
diarrhea, nausea, weakness
--------
patient denying medication for nausea at this time
Chronic conditions affecting care:
Stroke, TIA, A-fib on Eliquis, hypertension, lipidemia, diabetes
<NAFISA Cheng Last Filed: 12/29/23 20:03>
*Pulse Oximetry
Patient hypoxic: no
*Critical Care Note
Total Time (30-74mins, 75-104mins- exclusive of procedures): Not Applicable
Data Reviewed
Review of Other/Old Records Reveals: Records (Reviewed ER physician documentation on 11/10/2023)
Source: patient
<NAFISA Cheng Last Filed: 12/29/23 20:03>
Patient Management
Escalation/DeEscalation of care consider admission/obs:
This is a 68-year-old male with a past medical history of A-fib on Eliquis, type 2 diabetes, JOAQUÍN, HTN, HLP presenting to the ER today with concerns of diarrhea and nausea for the past 2 weeks. Patient states he is also felt weaker. Here in the
emergency department, he was given IV fluids. Reevaluation, patient states that he feels significantly better and back to his normal self. Patient did not want to wait to attempt to provide a stool sample here. I advised patient to try to collect
one at home and provided him a lab prescription. Also gave patient return precautions. I suspect his current symptoms are related to the trulicity. 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
medication. Patient in agreement with plan. Patient stable for discharge
ED Attending Note
<Susie Fountain PA-C - Last Filed: 12/29/23 20:03>
ED Attending Note
ED Attending Note:
I have seen and evaluated the patient with a [id number] encounter. I have spoken to the advance practicer provider and involved in the medical history, the physical exam, medical decision making.
Evaluation and management service: agree unless noted differently below.
Results interpretation: agree unless noted differently below.
Focused HPI: 68-year-old male presenting for evaluation of diarrhea for the past several weeks. Patient recently started Trulicity. He started to develop reflux disease which the doctor has already blamed on Trulicity as well. Patient denies any
abdominal pain.
Physical exam: Sitting in bed comfortably. Mildly dry mucous membranes. Abdomen soft and nontender
Medical Decision Making: Given no abdominal pain, discussed low utility in CT. Discussed refraining from Trulicity and speaking to PCP. Will try and obtain stool studies to obtain C. difficile and stool culture.
-
Portions of this chart may have been created with voice recognition software.� Occasional wrong word or��sound alike� substitutions may have occurred due to the inherent limitations of voice recognition software.
<Ralph Coombs DO - Last Filed: 12/29/23 14:56>
ED Attending Note
Patient seen and examined by attending physician: Yes
I performed the substantive portion of visit, reviewed & personally made and approve the management plan that is documented in note by myself or AMANDA.: Yes
ED Attending Note:
I have seen and evaluated the patient with a [id number] encounter. I have spoken to the advance practicer provider and involved in the medical history, the physical exam, medical decision making.
Evaluation and management service: agree unless noted differently below.
Results interpretation: agree unless noted differently below.
Focused HPI: 68-year-old male presenting for evaluation of diarrhea for the past several weeks. Patient recently started Trulicity. He started to develop reflux disease which the doctor has already blamed on Trulicity as well. Patient denies any
abdominal pain.
Physical exam: Sitting in bed comfortably. Mildly dry mucous membranes. Abdomen soft and nontender
Medical Decision Making: Given now abdominal pain, discussed low utility in CT. Discussed refraining from Trulicity and speaking to PCP. Will try and obtain stool studies to obtain C. difficile and stool culture.
Discharge Plan
Departure
Patient Disposition: Home (Routine Discharge)
Date of Disposition: 12/29/23
Time of Disposition: 15:53
Patient with high blood pressure during this ER visit?: No
Condition: Good
Discharge Problem:
Diarrhea
Instructions: Diarrhea, Adult ED, BLOOD PRESSURE
Prescriptions:
No Action
atorvastatin 80 MG tablet
80 mg PO DAILY
finasteride 5 MG tablet
5 mg PO DAILY
Eliquis 5 MG tablet
5 mg PO BID
docusate sodium 100 MG capsule
300 mg PO DAILY
metoprolol succinate 50 MG tablet extended release 24 hr
50 mg PO BID Qty: 60 0RF
polyethylene glycol 3350 17 GRAMS powder in packet
17 grams PO DAILY
cyclobenzaprine 10 mg Tablet
20 mg PO DAILYPRN PRN (Reason: muscle spasms)
amlodipine 5 mg Tablet
5 mg PO DAILY
isoniazid 300 mg Tablet
300 mg PO HS
diphenhydramine HCl [Banophen] 25 mg Capsule
25 mg PO HS
nystatin 100,000 unit/gram Cream
1 applic TOPICAL .2-3 TIMES A WEEK
pyridoxine (vitamin B6) 50 mg tablet
50 mg PO HS
lisinopril 40 mg Tablet
40 mg PO DAILY
melatonin 10 mg Tablet
20 - 30 mg PO HS
dapagliflozin propanediol [Farxiga] 10 mg Tablet
10 mg PO DAILY
Tyrvaya 0.03 mg/spray [place], Metered, Non-Aerosol
1 spray INTRANASAL Q12H PRN (Reason: dry eyes)
furosemide 20 MG tablet
20 mg PO DAILY
aspirin-dipyridamole 25-200 mg Capsule, Er Multiphase 12 Hr
1 cap PO BID Qty: 60 0RF
Januvia 100 mg Tablet
100 mg PO DAILY Qty: 30 0RF
Referrals:
Doris Claudio CRNP [Family Provider] -
Activity Restrictions/Additional Instructions:
Please return emergency department should you develop abdominal pain, fevers, chest pain, shortness of breath, syncopal episodes, or any other signs or symptoms concerning to you.
We have given a prescription for stool sample which you can collect and then take to of the address on the sheet.
Please call your post office manager to schedule follow-up appointment regarding the Trulicity.
Interventions
Interventions:
*ED COVID-19 Vaccine History Last Done: 12/29/23 11:49
*Nursing Disposition Last Done: 12/29/23 16:57
NM-Sitsdk-Hykikvwnse Assessment Last Done: 12/29/23 15:00
Discharge Date and Time
Discharge Date/Time: 12/29/23 16:58
Print Language: [facility]
[2023-12-29 15:00] VITALS: BP 110/70
[2023-12-29] MEDS: NSS 500 IV (15:22)
== END 2023-12-29 16:58 | disposition home or self-care (01) ==
LOC: EMR 11:20
PROVIDERS: Physician Assistant Medical; EMERGENCY PHYSICIAN Student in an Organized Health Care Education/Training Program; FAMILY PHYSICIAN Nurse Practitioner Primary Care
DX: R19.7 Diarrhea, unspecified (principal); I48.91 Unspecified atrial fibrillation; E11.9 Type 2 diabetes mellitus without complications; I10 Essential (primary) hypertension; E78.00 Pure hypercholesterolemia, unspecified; G47.33 Obstructive sleep apnea (adult) (pediatric); E66.01 Morbid (severe) obesity due to excess calories; I69.354 Hemiplegia and hemiparesis following cerebral infarction affecting left non-dominant side; Z79.01 Long term (current) use of anticoagulants; Z90.49 Acquired absence of other specified parts of digestive tract
CPT/HCPCS: 99283; 96360; 80053; 85025

== ENCOUNTER 2024-01-20 10:50 | Outpatient (RCR) | payer MEDICARE, SELFPAY | END 2024-01-20 23:59 | disposition home or self-care (01) | LOC: ROT 10:50 | PROVIDERS: ATTENDING PHYSICIAN Nurse Practitioner Primary Care | DX: I69.322 Dysarthria following cerebral infarction (principal); I69.391 Dysphagia following cerebral infarction; R13.13 Dysphagia, pharyngeal phase; Z73.6 Limitation of activities due to disability | CPT/HCPCS: 92507; 92526; 97010; 97014; 97110; 97112; 97140; 97530; 97535 ==

== ENCOUNTER 2024-02-17 10:06 | Outpatient (RCR) | payer MEDICARE, SELFPAY | END 2024-02-17 23:59 | disposition home or self-care (01) | LOC: ROT 10:06 | PROVIDERS: ATTENDING PHYSICIAN Nurse Practitioner Primary Care | DX: I69.322 Dysarthria following cerebral infarction (principal); I69.391 Dysphagia following cerebral infarction; R13.13 Dysphagia, pharyngeal phase; I69.398 Other sequelae of cerebral infarction; Z73.6 Limitation of activities due to disability | CPT/HCPCS: 92507; 92526; 97010; 97014; 97110; 97112; 97116; 97140; 97530; 97535 ==

== ENCOUNTER 2024-02-24 10:08 | Outpatient (RCR) | payer MEDICARE, SELFPAY | END 2024-02-24 13:05 | disposition home or self-care (01) | LOC: ROT 10:08 | PROVIDERS: ATTENDING PHYSICIAN Nurse Practitioner Primary Care | DX: I69.322 Dysarthria following cerebral infarction (principal); I69.391 Dysphagia following cerebral infarction; R13.13 Dysphagia, pharyngeal phase; Z73.6 Limitation of activities due to disability | CPT/HCPCS: 92507; 92526; 97110; 97112; 97530; 97535 ==

== ENCOUNTER 2024-03-21 16:37 | Observation (INO) | payer MEDICARE, SELFPAY ==
[2024-03-21] VITALS (13 sets, daily range): BP systolic 101–157; BP diastolic 57–97; PULSE 52–61; BMI 38.7
[2024-03-21 11:34] LABS: Glucose - Point of Care 169 mg/dl (70-99)
[2024-03-21 12:28] LABS: % Basophils 0.7 % (0-2); % Eosinophils 1.9 % (0-6); % Immature Granulocytes 0.5 % (0-0.5); % Monocytes 5.8 % (1.7-9.3); % Neutrophils 68.1 % (42.2-75.2); Absolute Basophils 0.1 10^3/uL (0-0.2); Absolute Eosinophils 0.1 10^3/uL (0-0.7); Absolute Lymphocytes 1.7 10^3/uL (1.2-3.4); Absolute Monocytes 0.4 10^3/uL (0.1-0.6); Hematocrit 41.5 % (39.0-52.0); Mean Corp Hgb Conc. 36.1 g/dL (33.0-37.0); Mean Corpuscular Volume 88.5 fL (80.0-94.0); Mean Platelet Volume 10.8 fL (7.4-10.4); Nucleated Red Blood Cells % 0 % (-); Platelet Count 196 10^3/uL (130-400); Red Blood Cell Count 4.69 10^6/uL (4.70-6.10); Red Cell Dist. Width 13.4 % (11.5-14.5); White Blood Cell Count 7.3 10^3/uL (4.8-10.8)
--- NOTE | 2024-03-21 12:28 | ED.GENMED ---
History of Present Illness
<Susie Fountain PA-C - Last Filed: 03/21/24 19:33>
General
Chief Complaint: Dizziness
Source: patient
Exam Limitations: none
Time Seen by Provider: 03/21/24 12:27
Nursing documentation reviewed up to this point in time: agreed with
History of Present Illness
History of Present Illness:
This is a 69-year-old male with past medical history of 7 strokes in the past with chronic left-sided weakness and speech difficulties, A-fib on Eliquis, CHF, hyperlipidemia presenting emergency department today with concerns of dizziness and
lightheadedness. Patient is currently asymptomatic but reports that today when he was sitting in his recliner, he started to feel dizzy, flushed, and lightheaded. Patient states that he went to sit down again and started to feel better but this
episode lasted around 30 min.he denies any chest pain at time, any lyndon the symptoms started rtness of breath. Patient states that he started mild headache as well. Patient states that his symptoms started to resolve without intervention. Patient
states that he has never had a feeling to this before. Denies any fevers or chills, states he has been feeling well the past few days. Denies any nausea or vomiting, changes in his appetite. He is able to walk without difficulty. Patient denies
any feelings of vertigo any visual disturbances.
Past History
<Susie Fountain PA-C - Last Filed: 03/21/24 19:33>
Past History
ED Past Medical History: CVA, HTN, Hypercholesterolemia, NIDDM and Other (Obstructive sleep apnea, morbid obesity, arthritis, constipation)
ED Past Surgical History: Appendectomy ( with Peritonitis), Orthopedic (Left knee total knee replacement, right total knee replacement) and Other (Hernia repair)
Social History
Tobacco: Non-smoker (Cigar once a month)
Alcohol: None
Drug: None
Personal:
Living: alone
Employment: Not employed
Family History
Family History: Other (Noncontributory)
Review of Systems
<Susie Fountain PA-C - Last Filed: 03/21/24 19:33>
Review of Systems
All Other Systems: ROS reviewed and negative except as documented in HPI and ROS
Phy Exam
<Susie Fountain PA-C - Last Filed: 03/21/24 19:33>
Physical Exam
Physical Exam:
General: Patient is well appearing and in no acute distress; non-toxic
Skin: Warm and dry, no rashes or lesions
Head: Normocephalic, atraumatic
Eyes: Sclera non-icteric. EOMs intact. PERRLA. No nystagmus.
Cardiac: Regular rate and rhythm, no murmurs
Peripheral Vascular: No lower extremity swelling or edema.
Pulm: Normal respiratory effort, no wheezes, rales, rhonchi
Abdomen: No abdominal tenderness to palpation
Musculoskeletal: Chronic left-sided weakness noted. No obvious signs of injury or trauma.
Neuro: CN II-XII intact, chronic left-sided weakness noted. Dysarthria. Normal finger-nose, heel burk.
Psychiatric: Appropriate mood and affect.
Course
<Susie Fountain PA-C - Last Filed: 03/21/24 19:33>
Orders/Labs/Results
Orders:
Orders
03/21/24 11:32
Electrocardiogram (*1) Urgent
Reason for Study: Chest Pain
EKG- Treatment ONCE
03/21/24 11:43
COVID-19 Antigen Urgent
Source: Nasal Swab
Complete Blood Count/With Diff Urgent
Comprehensive Metabolic Panel Urgent
Troponin I Urgent
Comment: ADD ON
03/21/24 13:11
Orthostatic VS- Treatment ONCE
03/21/24 13:25
Add On- LAB Urgent
Tests Added?: troponin
03/21/24 14:06
CT Head W/o Iv Contrast Urgent
Comment:
Reason For Exam: headache, dizziness
03/21/24 Dinner
Cholesterol Lowering
At Your Request: Full Participation
Cholesterol Lowering: Sodium, 2 Gram
03/21/24 16:22
Admit/Transfer Patient As Directed
Co-Sign Provider:
Level of Care: Observation services
Assign to:: Telemetry
Physician / Group: sejal
Diagnosis: vasovagal episode
Reason for Telemetry: Arrhythmia
Date to Stop Telemetry: 03/24/24
Time to Stop Telemetry: 11:00
Code Status As Directed
Resuscitation Status: Full Code
PRN Pain Medication Management As Directed
May give lesser potent ordered pain med per pt: Yes
preference::
Protocol:: Medication orders for pain may be administered in a
manner that supports deferring to patient preference
when the pt is:
- Requesting an ordered lesser potent pain medication.
Least to most potent pain medications are defined
as: acetaminophen < NSAID < tramadol < opioids
(morphine, oxycodone, hydromorphone).
- Requesting a lesser dose of the same medication IF
ORDERED.
- Requesting a less intrusive route of administration
if both routes are prescribed by the provider (PO <
IV).
03/21/24 21:20
Apixaban [Eliquis] 5 mg PO BID
Metoprolol Xl [Toprol Xl] 50 mg PO BID
03/21/24 21:20
VTE Contraindication Routine
VTE Mechanical Device Contraindication: Medical Contraindication
Pharmocologic Contraindication: Medical Contraindication
Activity As Directed
Activity Level: As Tolerated
Vital Signs As Directed
Frequency: Per unit guidelines
Ot Eval And Treat Routine
Pt Eval And Treat Routine
Activity Level: As Tolerated
03/21/24 22:00
Diphenhydramine [Benadryl] 25 mg PO HS
Isoniazid [INH] 300 mg PO HS
Melatonin 30 mg PO HS
Pyridoxine [Vitamin B-6] 50 mg PO HS
03/22/24 06:00
Complete Blood Count/With Diff IN AM
Comprehensive Metabolic Panel IN AM
03/22/24 08:00
Amlodipine [Norvasc] 5 mg PO DAILY
Atorvastatin [Lipitor] 80 mg PO DAILY
Dapagliflozin [Farxiga] 10 mg PO DAILY
Docusate Sodium [Colace] 300 mg PO DAILY
Finasteride [Proscar] 5 mg PO DAILY
Furosemide [Lasix] 20 mg PO DAILY
Lisinopril [Zestril] 40 mg PO DAILY
03/24/24 11:00
DC Protocol for Telemetry ONCE
Abnormal Lab Results
03/21/24 03/21/24
11:32 11:43
RBC 4.69 L 10^6/uL
(4.70-6.10)
MCH 32.0 H pg
(27.0-31.0)
MPV 10.8 H fL
(7.4-10.4)
Carbon Dioxide 21 L mmol/L
(22-30)
BUN 33 H mg/dl
(9-20)
Glucose 184 H mg/dl
(70-99)
POC Glucose 169 H mg/dl
(70-99)
03/21/24 11:43
03/21/24 11:43
Vital Signs
Initial and Last Documented VS:
Initial Vital Signs
Temp Pulse Resp BP Pulse Ox
36.6 C 58 18 157/92 94
03/21/24 11:31 03/21/24 11:31 03/21/24 11:31 03/21/24 11:31 03/21/24 11:31
Last Documented Vital Signs
Temp Pulse Resp BP Pulse Ox
36.6 C 54 18 144/85 95
03/21/24 11:31 03/21/24 22:07 03/21/24 18:45 03/21/24 22:07 03/21/24 18:45
<Mars Colin MD - Last Filed: 03/21/24 22:22>
Orders/Labs/Results
Orders:
Orders
03/21/24 11:32
Electrocardiogram (*1) Urgent
Reason for Study: Chest Pain
EKG- Treatment ONCE
03/21/24 11:43
COVID-19 Antigen Urgent
Source: Nasal Swab
Complete Blood Count/With Diff Urgent
Comprehensive Metabolic Panel Urgent
Troponin I Urgent
Comment: ADD ON
03/21/24 13:11
Orthostatic VS- Treatment ONCE
03/21/24 13:25
Add On- LAB Urgent
Tests Added?: troponin
03/21/24 14:06
CT Head W/o Iv Contrast Urgent
Comment:
Reason For Exam: headache, dizziness
03/21/24 Dinner
Cholesterol Lowering
At Your Request: Full Participation
Cholesterol Lowering: Sodium, 2 Gram
03/21/24 16:22
Admit/Transfer Patient As Directed
Co-Sign Provider:
Level of Care: Observation services
Assign to:: Telemetry
Physician / Group: sejal
Diagnosis: vasovagal episode
Reason for Telemetry: Arrhythmia
Date to Stop Telemetry: 03/24/24
Time to Stop Telemetry: 11:00
Code Status As Directed
Resuscitation Status: Full Code
PRN Pain Medication Management As Directed
May give lesser potent ordered pain med per pt: Yes
preference::
Protocol:: Medication orders for pain may be administered in a
manner that supports deferring to patient preference
when the pt is:
- Requesting an ordered lesser potent pain medication.
Least to most potent pain medications are defined
as: acetaminophen < NSAID < tramadol < opioids
(morphine, oxycodone, hydromorphone).
- Requesting a lesser dose of the same medication IF
ORDERED.
- Requesting a less intrusive route of administration
if both routes are prescribed by the provider (PO <
IV).
03/21/24 21:20
Apixaban [Eliquis] 5 mg PO BID
Metoprolol Xl [Toprol Xl] 50 mg PO BID
03/21/24 21:20
VTE Contraindication Routine
VTE Mechanical Device Contraindication: Medical Contraindication
Pharmocologic Contraindication: Medical Contraindication
Activity As Directed
Activity Level: As Tolerated
Vital Signs As Directed
Frequency: Per unit guidelines
Ot Eval And Treat Routine
Pt Eval And Treat Routine
Activity Level: As Tolerated
03/21/24 22:00
Diphenhydramine [Benadryl] 25 mg PO HS
Isoniazid [INH] 300 mg PO HS
Melatonin 30 mg PO HS
Pyridoxine [Vitamin B-6] 50 mg PO HS
03/22/24 06:00
Complete Blood Count/With Diff IN AM
Comprehensive Metabolic Panel IN AM
03/22/24 08:00
Amlodipine [Norvasc] 5 mg PO DAILY
Atorvastatin [Lipitor] 80 mg PO DAILY
Dapagliflozin [Farxiga] 10 mg PO DAILY
Docusate Sodium [Colace] 300 mg PO DAILY
Finasteride [Proscar] 5 mg PO DAILY
Furosemide [Lasix] 20 mg PO DAILY
Lisinopril [Zestril] 40 mg PO DAILY
03/24/24 11:00
DC Protocol for Telemetry ONCE
Abnormal Lab Results
03/21/24 03/21/24
11:32 11:43
RBC 4.69 L 10^6/uL
(4.70-6.10)
MCH 32.0 H pg
(27.0-31.0)
MPV 10.8 H fL
(7.4-10.4)
Carbon Dioxide 21 L mmol/L
(22-30)
BUN 33 H mg/dl
(9-20)
Glucose 184 H mg/dl
(70-99)
POC Glucose 169 H mg/dl
(70-99)
03/21/24 11:43
03/21/24 11:43
Vital Signs
Initial and Last Documented VS:
Initial Vital Signs
Temp Pulse Resp BP Pulse Ox
36.6 C 58 18 157/92 94
03/21/24 11:31 03/21/24 11:31 03/21/24 11:31 03/21/24 11:31 03/21/24 11:31
Last Documented Vital Signs
Temp Pulse Resp BP Pulse Ox
36.6 C 54 18 144/85 95
03/21/24 11:31 03/21/24 22:07 03/21/24 18:45 03/21/24 22:07 03/21/24 18:45
Lissettelt;Susie Fountain PA-C - Last Filed: 03/21/24 19:33>
MDM/Problems Addressed
Differential Diagnosis Includes:
ddx include orthostatic hypotension, vasovagal pre-syncope, cardiac arrhythmia, electrolyte derangement
MDM/Problems Addressed:
Dizziness:
This is a 69-year-old male with past medical history of 7 strokes in the past with chronic left-sided weakness and speech difficulties, A-fib on Eliquis, CHF, hyperlipidemia presenting emergency department today with concerns of dizziness and
lightheadedness. Patient is currently asymptomatic but reports that today when he was sitting in his recliner, he started to feel dizzy, flushed, and lightheaded. This persisted around 30 min. He is currently completely asymptomatic. He denies
chest pain, SOB. On physical exam VSS, heart RRR, no new focal neurologic defeciets (chronic left sided weakness and dysarthria)--normal finger to nose, heel to burk. Low suspicion for new stroke/TIA. Unremarkable workup here. Considering patient's
episode came on suddenly with no clear insighting event and it lasted 30 min, less likely to be vasovagal so will admit for continued monitoring.
Chronic conditions affecting care:
CVA
<Susie Fountain PA-C - Last Filed: 03/21/24 19:33>
*Pulse Oximetry
Patient hypoxic: no
*EKG
Interpreted by ED Provider?: Yes
EKG Intrepretation Date: 03/21/24
Interpretation: normal
Comparison EKG: no changes
Heart Rate: 58
Rate: bradycardiac
Rhythm: sinus
[place]oe[place]: normal axis
Interval: first degree heart block
QRS Pattern: normal QRS
Ischemia: no ischemia
*Critical Care Note
Total Time (30-74mins, 75-104mins- exclusive of procedures): Not Applicable
Data Reviewed
Review of Other/Old Records Reveals: Records (reviewed er physician documentation from 11/10/23)
Source: patient and records
<Susie Fountain PA-C - Last Filed: 03/21/24 19:33>
Patient Management
Escalation/DeEscalation of care consider admission/obs:
Admission indicated. Case reviewed with my attending Dr. Colin.
ED Attending Note
<Susie Fountain PA-C - Last Filed: 03/21/24 19:33>
-
Portions of this chart may have been created with voice recognition software.� Occasional wrong word or��sound alike� substitutions may have occurred due to the inherent limitations of voice recognition software.
<Mars Cloin MD - Last Filed: 03/21/24 22:22>
ED Attending Note
Patient seen and examined by attending physician: Yes
ED Attending Note:
I have seen and evaluated the patient with a [id number] encounter. I have spoken to the advance practicer provider and involved in the medical history, the physical exam, medical decision making.
Evaluation and management service: agree unless noted differently below.
Results interpretation: agree unless noted differently below.
Focused HPI: 69-year-old male with history as documented presents for evaluation after episode of lightheadedness and diaphoresis. Patient reports he was sitting in his recliner and got up to urinate. He says that he began to feel very weak,
lightheaded and diaphoretic. He sat back down and his recliner but his symptoms did not resolve�he says that they lasted for at least 30 minutes�his caretakers at bedside says that when she arrived he was drenched in sweat and complaining of
dizziness and this lasted for about 30 minutes for total duration of roughly 1 hour. She says his blood pressure was low at that time. He was brought to the emergency room to be evaluated. He did not have any chest pain or shortness of breath at
that time. Denies palpitations. He said he did have a mild headache. He denies any falls or trauma. Denies other complaints.
Physical exam: Awake alert not in distress. Hypertensive but otherwise normal vitals. Mucous membranes moist. No cardiac rubs gallops or murmurs appreciated. Lungs clear to auscultation. Abdomen nontender with no palpable masses. Chronic
left-sided weakness baseline for patient, no other neurologic deficits noted.
Medical Decision Makin-year-old male presents after prolonged episode of dizziness and diaphoresis. EKG sinus rhythm no high-grade AV block, no ectopy. Labs sent off including a CBC which shows no anemia, CMP no clinically significant
abnormalities. Troponin negative. CT head negative. Admit for observation on telemetry given prolonged duration of symptoms and associated hypotension.
Discharge Plan
Departure
Patient Disposition: Admit
Date of Disposition: 03/21/24
Time of Disposition: 15:26
Admit to: Telemetry
Presentation/result/management discussed w/ accepting MD/DO: Hospitalist
Patient with high blood pressure during this ER visit?: Yes
Condition: Fair
Discharge Problem:
Dizzinesses
Interventions
Interventions:
*Risk Screen - Suicide Last Done: 03/21/24 12:03
*General Assessment Last Done: 03/21/24 12:03
*Neglect/Abuse Screening Last Done: 03/21/24 12:03
ED- Fall Risk Assessment Last Done: 03/21/24 12:03
*ED COVID-19 Vaccine History Last Done: 03/21/24 12:03
ED- Neurological Assessment Last Done: 03/21/24 12:03
ED- Cardiac Assessment Last Done: 03/21/24 12:03
[2024-03-21 12:40] LABS: COVID-19 Antigen Negative (Negative)
[2024-03-21 12:41] LABS: ALT (SGPT) 29 U/L (0-50); AST (SGOT) 35 U/L (17-59); Albumin 4.7 g/dl (3.5-5.0); Alkaline Phosphatase 44 U/L (38-126); Blood Urea Nitrogen 33 mg/dl (9-20); Calcium 9.9 mg/dl (8.4-10.2); Carbon Dioxide 21 mmol/L (22-30); Chloride 105 mmol/L (98-107); Estimated Creatinine Clearance 75 ml/min; Glucose 184 mg/dl (70-99); Potassium 4.8 mmol/L (3.5-5.1); Sodium 139 mmol/L (135-145); Total Bilirubin 0.9 mg/dl (0.2-1.3); Total Protein 7.2 g/dl (6.3-8.2); eGFR 59.47
[2024-03-21 15:28] LABS: Troponin I 0.019 ng/ml
--- NOTE | 2024-03-21 16:24 | HPS.HSE ---
Family Physician
-
Family Physician: Doris Claudio
Chief Complaint
-
dizziness
History of Present Illness
69-year-old male past medical history of 7 CVAs in the past with residual left-sided weakness/speech difficulties, paroxysmal atrial fibrillation on Eliquis, CHF, CKD 3A, hypertension, hyperlipidemia, diabetes, sleep apnea, obesity, arthritis,
constipation, latent tuberculosis presenting with dizziness and lightheadedness. Today while sitting in his recliner he started to feel dizzy, flushed and lightheaded associate with some headache. Symptoms resolved within 2 hours. He denies any
fevers or chills, nausea or vomiting, changes in appetite, headache, vertigo, visual disturbance, chest pain or shortness of breath. He denies any numbness or tingling, focal weakness, difficulty speaking or swallowing. He denies any recent
changes to medications.
He denies smoking or alcohol use.
Medical History
Past Medical History
Past Medical History: Reports Other (7 CVAs in the past with residual left-sided weakness/speech difficulties, paroxysmal atrial fibrillation on Eliquis, CHF, CKD 3A, hypertension, hyperlipidemia, diabetes, sleep apnea, obesity, arthritis,
constipation, latent tuberculosis)
Past Surgical History: Reports Other ( Appendectomy ( with Peritonitis), Orthopedic (Left knee total knee replacement, right total knee replacement) and Other (Hernia repair))
Social History
Tobacco: Non-smoker
Alcohol: None
Drug: None
Family History
Family History: Not pertinent
Allergies / Home Medications
Allergies reflects when Allergies were last updated in [facility].
Home Medications with original date entered in [facility]
Allergy/Medication List:
Allergies
Allergy/AdvReac Type Severity Reaction Status Date / Time
oxycodone AdvReac Itching, Verified 12/29/23 11:51
Blanching
of skin
Home Medications
atorvastatin 80 mg tablet 80 mg PO DAILY High cholesterol 02/04/19
finasteride 5 mg tablet 5 mg PO DAILY prostate 02/04/19
apixaban 5 mg tablet (Eliquis) 5 mg PO BID Blood clot prevention/tx 04/08/20
docusate sodium 100 mg capsule 300 mg PO DAILY Constipation 04/08/20
metoprolol succinate 50 mg tablet,extended release 24 hr 50 mg PO BID #60 tabs 04/15/20
amlodipine 5 mg tablet 5 mg PO DAILY Blood Pressure 11/10/23
dapagliflozin propanediol 10 mg tablet (Farxiga) 10 mg PO DAILY Diabetes 11/10/23
diphenhydramine HCl 25 mg capsule (Banophen) 25 mg PO HS Sleep 11/10/23
furosemide 20 mg tablet 20 mg PO DAILY Fluid Retention/Swelling 11/10/23
isoniazid 300 mg tablet 300 mg PO HS TB 11/10/23
lisinopril 40 mg tablet 40 mg PO DAILY Blood Pressure 11/10/23
melatonin 10 mg tablet 30 mg PO HS Sleep 11/10/23
pyridoxine (vitamin B6) 50 mg tablet 50 mg PO HS Supplement 11/10/23
varenicline 0.03 mg/spray nasal spray (Tyrvaya) 1 spray intranasal Q12H PRN dry eyes 11/10/23
Review of Systems
-
History Source: Patient
A 12 point ROS was completed and negative except as noted: Yes
Constitutional: Reports No Symptoms
EENT: Reports No Symptoms
Respiratory: Reports No Symptoms
Cardiac: Reports No Symptoms
Abdomen/GI: Reports No Symptoms
: Reports No Symptoms
Musculoskeletal: Reports No Symptoms
Skin: Reports No Symptoms
Neurological: Reports See HPI
Endocrine: Reports No Symptoms
Hematologic/Lymphatic: Reports No Symptoms
Psych: Reports No Symptoms
Physical Exam
Vital Signs
Vital Signs
Temp Pulse Resp BP Pulse Ox
97.9 F 56 22 157/92 98
03/21/24 11:31 03/21/24 13:30 03/21/24 13:30 03/21/24 11:31 03/21/24 13:30
Physical Exam
General: Well Developed, Well Nourished and No Apparent Distress
HEENT: NormoCephalic, Moist mucous membranes and Atraumatic
Respiratory: Clear
Cardiac: S1/S2 and Regular Rhythm; No Murmur or Rub
GI: Soft, Non Tender, Non Distended and Normal Bowel Sounds; No Organomegaly
Rectal: Deferred by Provider
Musculoskeletal: No Clubbing, No Cyanosis and No Edema
Skin: No Rash
Neuro: Nonfocal/grossly intact
Laboratory Results
-
03/21/24 11:43
03/21/24 11:43
Laboratory Results
Total Bilirubin 0.9 mg/dl (0.2-1.3) 03/21/24 11:43
AST 35 U/L (17-59) 03/21/24 11:43
ALT 29 U/L (0-50) 03/21/24 11:43
Alkaline Phosphatase 44 U/L (38-126) 03/21/24 11:43
Troponin I 0.019 ng/ml 03/21/24 11:43
Data Reviewed
-
Lab Data: Labs Reviewed by me
Old Records: Reviewed
Impression/Plan
-
IMPRESSION:
PLAN:
# Likely vasovagal episode
-Asymptomatic currently, no new neurological deficits
-Orthostatics negative
-CT head shows no acute intracranial abnormality
-Doubt new CVA
-PT/OT
History of multiple CVAs in the past with residual left-sided weakness/speech difficulty
-Continue Eliquis
Paroxysmal atrial fibrillation
-Continue Eliquis
-Continue metoprolol
Chronic HFpEF
-Continue Lasix
Essential hypertension
-Continue amlodipine, lisinopril
CKD 3A
-Renal function at baseline
Hyperlipidemia
-Continue statin
Type 2 diabetes
-Continue dapagliflozin
Obstructive sleep apnea
Latent tuberculosis
-Continue isoniazid
Obesity secondary to excess calories
BPH
-Continue finasteride
Full code
DVT prophylaxis�Eliquis
Cardiac diet
[2024-03-21] MEDS: BENADRYL 25 MG PO (22:07)
[2024-03-21] MEDS: TOPROL XL 50 MG PO (22:07)
[2024-03-21] MEDS: VITAMIN B-6 50 MG PO (22:07)
[2024-03-21] MEDS: ELIQUIS 5 MG PO (22:09)
[2024-03-21] MEDS: MELATONIN 30 MG PO (22:17)
[2024-03-21] MEDS: INH 300 MG PO (22:17)
[2024-03-22] VITALS (9 sets, daily range): BP systolic 117–150; BP diastolic 70–79; PULSE 60–61; O2SAT 96
[2024-03-22 06:26] LABS: % Basophils 0.7 % (0-2); % Eosinophils 3.1 % (0-6); % Immature Granulocytes 0.5 % (0-0.5); % Lymphocytes 26.6 % (20.5-51.1); % Monocytes 7.2 % (1.7-9.3); % Neutrophils 61.9 % (42.2-75.2); Absolute Basophils 0.1 10^3/uL (0-0.2); Absolute Eosinophils 0.3 10^3/uL (0-0.7); Absolute Lymphocytes 2.1 10^3/uL (1.2-3.4); Absolute Monocytes 0.6 10^3/uL (0.1-0.6); Hematocrit 41.2 % (39.0-52.0); Hemoglobin 14.6 g/dL (13.0-18.0); Mean Corp Hgb Conc. 35.4 g/dL (33.0-37.0); Mean Corpuscular Hgb 31.8 pg (27.0-31.0); Mean Corpuscular Volume 89.8 fL (80.0-94.0); Mean Platelet Volume 10.4 fL (7.4-10.4); Nucleated Red Blood Cells % 0 % (-); Platelet Count 177 10^3/uL (130-400); Red Blood Cell Count 4.59 10^6/uL (4.70-6.10); Red Cell Dist. Width 13.2 % (11.5-14.5)
[2024-03-22 07:09] LABS: ALT (SGPT) 24 U/L (0-50); AST (SGOT) 25 U/L (17-59); Albumin 4.2 g/dl (3.5-5.0); Alkaline Phosphatase 48 U/L (38-126); Blood Urea Nitrogen 31 mg/dl (9-20); Calcium 9.8 mg/dl (8.4-10.2); Carbon Dioxide 25 mmol/L (22-30); Chloride 105 mmol/L (98-107); Estimated Creatinine Clearance 75 ml/min; Glucose 116 mg/dl (70-99); Potassium 4.3 mmol/L (3.5-5.1); Sodium 142 mmol/L (135-145); Total Bilirubin 0.9 mg/dl (0.2-1.3); Total Protein 6.5 g/dl (6.3-8.2); eGFR 59.47
[2024-03-22] MEDS: COLACE 300 MG PO (08:14)
[2024-03-22] MEDS: LASIX 20 MG PO (08:15)
[2024-03-22] MEDS: ELIQUIS 5 MG PO (08:15)
[2024-03-22] MEDS: NORVASC 5 MG PO (08:15)
[2024-03-22] MEDS: TOPROL XL 50 MG PO (08:15)
[2024-03-22] MEDS: PROSCAR 5 MG PO (08:15)
[2024-03-22] MEDS: LIPITOR 80 MG PO (08:16)
[2024-03-22] MEDS: FARXIGA 10 MG PO (08:16)
[2024-03-22] MEDS: ZESTRIL 40 MG PO (08:16)
--- NOTE | 2024-03-22 10:37 | CM ---
Addendum entered by Mary Agosto RN 03/22/24 14:42:
CM reviewed medical records. Plan for discharge today. No PT/OT needs noted.
PLAN: Home no needs.
Original Note:
CM reviewed medical records. CM met with patient [employer] letter given and explained.
Patient lives independently in a trailer. He confirms that he has [employer] assistance 3 days per week for 4 hours. His aides assist with ADL's and assist with food shopping. Patient stated that they assist also with rides to doctor's appointments and to
the [facility]. Patient does not have skilled care in the home at this time. Patient does not know what agency his aides are from, but is able to contact their supervisor crack off as needed. Patient's son provides Lyft rides for patient through the son's account
to further assist with transportation. Patient is active with his PCP. Patient uses [facility] in [place] for medication services.
PLAN: No home needs, or VN with PT.
--- NOTE | 2024-03-22 11:17 | PTOTSP ---
Pt is indep for ADLs and functional transfers. No skilled OT needs. Will sign off.
--- NOTE | 2024-03-22 13:02 | W.PN.HOSP.TC ---
Today's Communication/Plan
-
dc to home
Assessment / Plan
Assessment / Plan
Assessment:
pre-syncope, vasovagal etiology vs relative bradycardia from meds
- asymptomatic
- CT head negative
- orthostatics negative
- will decrease Metoprolol to 25mg BID
History of multiple CVAs in the past with residual left-sided weakness/speech difficulty
- continue Eliquis
Paroxysmal atrial fibrillation
- continue Eliquis
- will decrease Metoprolol to 25mg BID
Chronic HFpEF
- continue Lasix
Essential hypertension
- continue amlodipine, lisinopril
CKD 3A
- Renal function at baseline
Hyperlipidemia
- continue statin
Type 2 diabetes
- continue dapagliflozin
Obstructive sleep apnea
Latent tuberculosis
- continue isoniazid
Obesity secondary to excess calories
BPH
- continue finasteride
DVT ppx: Eliquis
Code: Full
More than 30 minutes spent in discharge including
Final examination of the patient
Summarizing hospital stay
Instructions for continuing care to all relevant caregivers
Preparation of discharge records, prescriptions, and referral forms
Total time spent (in minutes): 41
Anticipated Discharge: Today
Subjective/Interval History
-
Date of Service: March 22, 2024
denies any new complaints
feels well and did well with PT/OT
Objective Data
-
Labs:
Laboratory Results
03/22/24
05:26
WBC 8.0
Hgb 14.6
Hct 41.2
Plt Count 177
Sodium 142
Potassium 4.3
Chloride 105
Carbon Dioxide 25
BUN 31 H
Creatinine 1.3
Glucose 116 H
Calcium 9.8
Total Bilirubin 0.9
AST 25
ALT 24
Alkaline Phosphatase 48
Vital Signs:
Vital Signs
Temp Pulse Resp BP Pulse Ox
97.8 F 61 20 118/72 96
03/22/24 11:00 03/22/24 11:00 03/22/24 11:00 03/22/24 11:00 03/22/24 11:00
Physical Exam
-
General: No Apparent Distress
HEENT: Normocephalic and Atraumatic
Respiratory: Negative Wheezes
Cardiac: Regular Rhythm
GI: Soft
Genito-urinary: No Costovertebral Tender
Musculoskeletal: No Edema
Neuro: AO x 3
Psych: Calm
Data Reviewed
-
Total Time Spent with Patient (in minutes): 45
Labs: Labs Reviewed by me
--- NOTE | 2024-03-22 13:07 | W.DS.TRANS ---
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
-
Discharge Instructions:
Discharge Diagnosis/Procedures pre-syncope, vagal vs bradycardia related
Diet Low Cholesterol,2 Gram Sodium
Activity As tolerated
Instructions:
Stand-Alone Forms:
Changes to Home Medications: Yes
Discharge Medications:
DC Medications w/original date entered in [employer]
atorvastatin 80 mg tablet 80 mg PO DAILY High cholesterol 02/04/19
finasteride 5 mg tablet 5 mg PO DAILY prostate 02/04/19
apixaban 5 mg tablet (Eliquis) 5 mg PO BID Blood clot prevention/tx 04/08/20
docusate sodium 100 mg capsule 300 mg PO DAILY Constipation 04/08/20
amlodipine 5 mg tablet 5 mg PO DAILY Blood Pressure 11/10/23
dapagliflozin propanediol 10 mg tablet (Farxiga) 10 mg PO DAILY Diabetes 11/10/23
diphenhydramine HCl 25 mg capsule (Banophen) 25 mg PO HS Sleep 11/10/23
furosemide 20 mg tablet 20 mg PO DAILY Fluid Retention/Swelling 11/10/23
isoniazid 300 mg tablet 300 mg PO HS Infection 11/10/23
lisinopril 40 mg tablet 40 mg PO DAILY Blood Pressure 11/10/23
melatonin 10 mg tablet 30 mg PO HS Sleep 11/10/23
pyridoxine (vitamin B6) 50 mg tablet 50 mg PO HS Supplement 11/10/23
varenicline 0.03 mg/spray nasal spray (Tyrvaya) 1 spray intranasal Q12H PRN dry eyes 11/10/23
metoprolol succinate 25 mg tablet,extended release 24 hr (Toprol XL) 25 mg PO BID #60 tabs 03/22/24
Home Medication Changes
decrease BB to 1/2
Pending Results: No
Total time spent discharging patient (in min): 41
== END 2024-03-22 15:18 | disposition home or self-care (01) ==
LOC: ED 16:37
PROVIDERS: Emergency Medicine; ADMITTING PHYSICIAN Hospitalist; ATTENDING PHYSICIAN Internal Medicine; EMERGENCY PHYSICIAN Emergency Medicine; FAMILY PHYSICIAN Nurse Practitioner Primary Care
DX: R55 Syncope and collapse (principal); R42 Dizziness and giddiness; I69.354 Hemiplegia and hemiparesis following cerebral infarction affecting left non-dominant side; R00.1 Bradycardia, unspecified; I48.0 Paroxysmal atrial fibrillation; I50.32 Chronic diastolic (congestive) heart failure; N18.31 Chronic kidney disease, stage 3a; E78.00 Pure hypercholesterolemia, unspecified; R47.89 Other speech disturbances; R51.9 Headache, unspecified; E66.01 Morbid (severe) obesity due to excess calories; G47.33 Obstructive sleep apnea (adult) (pediatric); N40.0 Benign prostatic hyperplasia without lower urinary tract symptoms; I13.0 Hypertensive heart and chronic kidney disease with heart failure and stage 1 through stage 4 chronic kidney disease, or unspecified chronic kidney disease; E11.22 Type 2 diabetes mellitus with diabetic chronic kidney disease; M19.90 Unspecified osteoarthritis, unspecified site; Z68.38 Body mass index [BMI] 38.0-38.9, adult; Z79.01 Long term (current) use of anticoagulants; Z11.52 Encounter for screening for COVID-19; Z90.49 Acquired absence of other specified parts of digestive tract; Z96.653 Presence of artificial knee joint, bilateral; Z88.5 Allergy status to narcotic agent; Z79.84 Long term (current) use of oral hypoglycemic drugs; Z22.7 Latent tuberculosis
CPT/HCPCS: 70450; 80053; 82962; 84484; 85025; 87811; 93005; 97161; 99285; G0378

== ENCOUNTER → 2024-06-12 09:47 | Outpatient (REF) | payer MEDICARE, SELFPAY | LOC: DHSLP 09:47 | PROVIDERS: ATTENDING PHYSICIAN Internal Medicine Critical Care Medicine; FAMILY PHYSICIAN Nurse Practitioner Primary Care | DX: G47.00 Insomnia, unspecified (principal); G47.8 Other sleep disorders; R06.83 Snoring | CPT/HCPCS: 95810 ==

== ENCOUNTER 2024-08-17 16:55 | Observation (INO) | payer OTHER, SELFPAY ==
[2024-08-17 10:14] VITALS: BP 141/93
--- NOTE | 2024-08-17 11:15 | EDRN ---
Brett Kimble PA in to see pt at this time.
--- NOTE | 2024-08-17 11:25 | ED.GENMED ---
History of Present Illness
General
Chief Complaint: Fall
Time Seen by Provider: 08/17/24 11:15
History of Present Illness
History of Present Illness:
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
tobacco use, sleep apnea, atrial fibrillation, CHF, hypertension, hyperlipidemia, history of kidney stones, and hearing impairment, here today with aide as the patient sustained a fall earlier today. The patient states he was standing at the fridge
when his legs got caught causing him to fall onto the ground. He denies head trauma or loss of consciousness. He has since had mild low back pain. Patient also reports a similar episode last week in which he sustained a fall. He was not
medically evaluated at that time. Patient does typically ambulate with a cane. He denies radiation of pain into his lower extremities. No numbness or tingling. No worsening of any weakness more than his typical baseline. No incontinence.
Patient denies chest pain or difficulty breathing. No dizziness. No headache. The patient's aide is concerned as the patient has had frequent falls. She does believe he has been more off balance than his baseline. The patient did recently
recover from COVID�19 last week.
Past History
Past History
ED Past Medical History: CVA, HTN, Hypercholesterolemia, NIDDM and Other (Obstructive sleep apnea, morbid obesity, arthritis, constipation)
ED Past Surgical History: Appendectomy ( with Peritonitis), Orthopedic (Left knee total knee replacement, right total knee replacement) and Other (Hernia repair)
Social History
Tobacco: Non-smoker (Cigar once a month)
Alcohol: None
Drug: None
Personal:
Living: alone
Employment: Not employed
Family History
Family History: Other (Noncontributory)
Review of Systems
Review of Systems
All Other Systems: ROS reviewed and negative except as documented in HPI and ROS
Phy Exam
Physical Exam
Physical Exam:
GENERAL: Alert , in no apparent distress
EYE: pupils equal and reactive
NECK: Supple
ENT: o/p clr, mmm.
CARDIAC: Regular rate and rhythm .
LUNGS: Clear breath sounds bilaterally, no acute respiratory distress, no wheezes/rales/rhonchi
ABDOMEN: Soft, without focal tenderness, no r/g, no cvat
NEUROLOGICAL: Alert and oriented, no focal neuro deficits
SKIN: Warm and dry, skin intact.
MUSCULOSKELETAL: No edema, well perfused. There is no tenderness to palpation along the thoracic and lumbar paraspinal regions and midline, no deformities, no ecchymosis. There is intact strength in the bilateral lower extremities with sensation
and motor intact throughout. There is slight decrease in strength and range of motion along the left upper extremity secondary to prior stroke.
PSYCH: Normal and appropriate interaction.
Course
Orders/Labs/Results
Orders:
Orders
08/17/24 11:29
CR Lumbar Spine 2 Or 3 Views Urgent
Comment:
Reason For Exam: fall, back pain
08/17/24 11:30
CT Head W/o Iv Contrast Urgent
Comment:
Reason For Exam: frequent falls, on blood thinners
08/17/24 12:15
Complete Blood Count/With Diff Urgent
08/17/24 13:37
Basic Metabolic Panel Urgent
08/17/24 15:37
Urinalysis Reflex To Culture Urgent
Date Specimen was Collected: 08/17/24
Time Specimen was Collected: 15:35
Abnormal Lab Results
08/17/24 08/17/24 08/17/24
12:15 13:37 15:37
MCH 31.1 H pg
(27.0-31.0)
BUN 28 H mg/dl
(9-20)
Urine Glucose 3+ A
(Negative)
08/17/24 12:15
08/17/24 13:37
Vital Signs
Initial and Last Documented VS:
Initial Vital Signs
Temp Pulse Resp BP Pulse Ox
98.5 F 66 16 141/93 99
08/17/24 10:14 08/17/24 10:14 08/17/24 10:14 08/17/24 10:14 08/17/24 10:14
Last Documented Vital Signs
Temp Pulse Resp BP Pulse Ox
98.5 F 70 18 141/80 99
08/17/24 10:14 08/17/24 13:30 08/17/24 13:30 08/17/24 13:30 08/17/24 13:30
MDM/Problems Addressed
Differential Diagnosis Includes:
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
tobacco use, sleep apnea, atrial fibrillation, CHF, hypertension, hyperlipidemia, history of kidney stones, and hearing impairment, here today with aide as the patient sustained a fall earlier today. Overall, patient appears very well. He is
mildly hypertensive here. Physical examination described above. The patient reports a fall that appears mostly mechanical however he has had 2 falls within the last week and aide is concerned for possible increased weakness/ambulatory dysfunction.
We will begin with imaging of the lumbar spine but we will also obtain a workup to evaluate for the reason for his increased falls. Will closely monitor.
08/17/2024 15:30: Screening labs grossly consistent with the patient's baseline. Head CT without acute findings. Lumbar x-ray negative. Attempted to ambulate patient without success. Patient unsteady. At this time, patient is presenting with
signs of ambulatory dysfunction and given frequent falls I believe he would benefit from inpatient admission for PT/OT mobility assessment. Case discussed with hospitalist attending, Savana Azul, who accepts patient for admission at
this time.
*Critical Care Note
Total Time (30-74mins, 75-104mins- exclusive of procedures): Not Applicable
ED Attending Note
-
Portions of this chart may have been created with voice recognition software.� Occasional wrong word or��sound alike� substitutions may have occurred due to the inherent limitations of voice recognition software.
Discharge Plan
Departure
Patient Disposition: Admit
Date of Disposition: 08/17/24
Time of Disposition: 15:29
Admit to: Med/Surg
Admit to doctor: Savana Ambrose
Presentation/result/management discussed w/ accepting MD/DO: Hospitalist
Patient with high blood pressure during this ER visit?: Yes
Condition: Fair
Covid-19: Not Applicable
Discharge Problem:
Ambulatory dysfunction
Prescriptions:
No Action
atorvastatin 80 MG tablet
80 mg PO DAILY
finasteride 5 MG tablet
5 mg PO DAILY
Eliquis 5 MG tablet
5 mg PO BID
docusate sodium 100 MG capsule
100 mg PO DAILY
amlodipine 5 mg Tablet
5 mg PO DAILY
isoniazid 300 mg Tablet
300 mg PO HS
pyridoxine (vitamin B6) 50 mg tablet
50 mg PO HS
lisinopril 40 mg Tablet
20 mg PO DAILY
dapagliflozin propanediol [Farxiga] 10 mg Tablet
10 mg PO DAILY
Tyrvaya 0.03 mg/spray [place], Metered, Non-Aerosol
1 spray INTRANASAL Q12H PRN (Reason: dry eyes)
metoprolol succinate [Toprol XL] 25 mg tablet extended release 24 hr
25 mg PO BID Qty: 60 0RF
metformin 500 mg Tablet
500 mg PO DAILY
aspirin-dipyridamole [Aggrenox] 25-200 mg Capsule, Er Multiphase 12 Hr
1 cap PO BID
temazepam 15 mg Capsule
15 mg PO HS
Referrals:
Doris Claudio CRNP [Family Provider] -
Interventions
Interventions:
*Risk Screen - Suicide Last Done: 08/17/24 10:14
*General Assessment Last Done: 08/17/24 10:14
*Neglect/Abuse Screening Last Done: 08/17/24 10:14
ED- Fall Risk Assessment Last Done: 08/17/24 11:49
*ED COVID-19 Vaccine History Last Done: 08/17/24 11:49
ED-Musculoskeletal Assessment Last Done: 08/17/24 12:04
ED- Neurological Assessment Last Done: 08/17/24 12:04
ED-Skin Assessment Last Done: 08/17/24 12:04
Discharge Date and Time
Print Language: TOGOLESE
[2024-08-17 11:49] VITALS: BMI 35.6
[2024-08-17 12:04] VITALS: BP 114/78
[2024-08-17 12:35] LABS: % Basophils 0.6 % (0-2); % Eosinophils 1.2 % (0-6); % Immature Granulocytes 0.4 % (0-0.5); % Lymphocytes 21.8 % (20.5-51.1); % Monocytes 5.6 % (1.7-9.3); % Neutrophils 70.4 % (42.2-75.2); Absolute Basophils 0.1 10^3/uL (0-0.2); Absolute Eosinophils 0.1 10^3/uL (0-0.7); Absolute Lymphocytes 1.8 10^3/uL (1.2-3.4); Absolute Monocytes 0.5 10^3/uL (0.1-0.6); Absolute Neutrophils 5.9 10^3/uL (1.4-6.5); Hemoglobin 15.4 g/dL (13.0-18.0); Mean Corp Hgb Conc. 34.2 g/dL (33.0-37.0); Mean Corpuscular Hgb 31.1 pg (27.0-31.0); Mean Corpuscular Volume 90.9 fL (80.0-94.0); Mean Platelet Volume 10.2 fL (7.4-10.4); Nucleated Red Blood Cells % 0 % (-); Platelet Count 168 10^3/uL (130-400); Red Blood Cell Count 4.95 10^6/uL (4.70-6.10); White Blood Cell Count 8.4 10^3/uL (4.8-10.8)
--- NOTE | 2024-08-17 12:45 | EDRN ---
Pt assisted to stand to void. Pt unable to void at this time.
[2024-08-17 13:30] VITALS: BP 141/80
[2024-08-17 14:02] LABS: Blood Urea Nitrogen 28 mg/dl (9-20); Calcium 9.3 mg/dl (8.4-10.2); Carbon Dioxide 24 mmol/L (22-30); Chloride 104 mmol/L (98-107); Estimated Creatinine Clearance 77 ml/min; Glucose 96 mg/dl (70-99); Potassium 4.3 mmol/L (3.5-5.1); Sodium 139 mmol/L (135-145); eGFR > 60.00
--- NOTE | 2024-08-17 14:36 | EDRN ---
Pt stood and sat and attempted to void w/out success at this time, second attempt.
--- NOTE | 2024-08-17 15:05 | EDRN ---
Brett STUBBS in room w/ pt. Pt to be admitted.
--- NOTE | 2024-08-17 15:38 | HPS.HSE ---
Family Physician
-
Family Physician: Doris Claudio
Chief Complaint
-
Weakness x 1 day, fall x 2
History of Present Illness
69-year-old male here with his aide on the phone who states yesterday patient slept all day however was not complaining of any other issues. Today he reportedly was in the kitchen at 8 AM states he was using his quad cane when he went to turn his
feet got caught and he fell to the ground his aide Kaela states she was unable to lift him due to his weight and size. There was no head trauma or loss of consciousness, however since then he has been complaining of lower lumbar back pain
nonradiating no bowel or bladder loss no paresthesias down legs, along with feeling achy and lethargic. He also had a similar episode last week in which he sustained a fall but was not medically evaluated at that time. He typically ambulates with
a cane secondary to CVA x 8 with residual left upper extremity weakness. The aide reports the patient recently recovered from COVID-19 last week and has been weak she has concerns given the increased frequent falls. He has past medical history of
CVA x 8 with left upper extremity greater than left lower extremity weakness on anticoagulation with Eliquis, prior nicotine abuse, occasional cigar once a month, A-fib, chronic CHF, HTN, HLD, JOAQUÍN noncompliant with CPAP, class I obesity, arthritis,
constipation renal calculi, [place].
Medical History
Past Medical History
Past Medical History: Reports Other (7 CVAs in the past with residual left-sided weakness/speech difficulties, paroxysmal atrial fibrillation on Eliquis, CHF, CKD 3A, hypertension, hyperlipidemia, diabetes, sleep apnea, obesity, arthritis,
constipation, latent tuberculosis)
Past Surgical History: Reports Other ( Appendectomy ( with Peritonitis), Orthopedic (Left knee total knee replacement, right total knee replacement) and Other (Hernia repair))
Social History
Tobacco: Non-smoker
Alcohol: None
Drug: None
Family History
Family History: Not pertinent
Allergies / Home Medications
Allergies reflects when Allergies were last updated in [facility].
Home Medications with original date entered in [facility]
Allergy/Medication List:
Allergies
Allergy/AdvReac Type Severity Reaction Status Date / Time
oxycodone AdvReac Itching, Verified 08/17/24 10:16
Blanching
of skin
Home Medications
atorvastatin 80 mg tablet 80 mg PO DAILY High cholesterol 02/04/19
finasteride 5 mg tablet 5 mg PO DAILY prostate 02/04/19
apixaban 5 mg tablet (Eliquis) 5 mg PO BID Blood clot prevention/tx 04/08/20
docusate sodium 100 mg capsule 100 mg PO DAILY Constipation 04/08/20
amlodipine 5 mg tablet 5 mg PO DAILY Blood Pressure 11/10/23
dapagliflozin propanediol 10 mg tablet (Farxiga) 10 mg PO DAILY Diabetes 11/10/23
isoniazid 300 mg tablet 300 mg PO HS Infection 11/10/23
lisinopril 40 mg tablet 20 mg PO DAILY Blood Pressure 11/10/23
pyridoxine (vitamin B6) 50 mg tablet 50 mg PO HS Supplement 11/10/23
varenicline tartrate 0.03 mg/spray metered nasal spray (Tyrvaya) 1 spray intranasal Q12H PRN dry eyes 11/10/23
metoprolol succinate 25 mg tablet,extended release 24 hr (Toprol XL) 25 mg PO BID #60 tabs 03/22/24
aspirin 25 mg-dipyridamole 200 mg capsule,ext.release 12 hr multiphase 1 cap PO BID 08/17/24
metformin 500 mg tablet 500 mg PO DAILY 08/17/24
temazepam 15 mg capsule 15 mg PO HS 08/17/24
Review of Systems
-
History Source: Patient and Family (Stanley Sherwood via phone)
A 12 point ROS was completed and negative except as noted: Yes
Constitutional: Reports Fatigue and Other ( multiple CVAs x8 in the past with residual left-sided weakness/chronic left arm contracture to shoulder level/chronic speech difficulty with slight chronic slurring #Chronic ambulatory dysfunction uses
cane); Denies Fever or Chills
EENT: Denies Sore Throat or Runny Nose
Respiratory: Denies Cough or Trouble Breathing
Cardiac: Denies Chest Pain or Palpitations
Abdomen/GI: Denies Abdominal Pain, Nausea, Vomiting, Diarrhea, Constipated, Bloody Stools or Black Stools
: Denies Dysuria, Frequency, Flank Pain, Incontinence, Difficulty Voiding or Urgency
Musculoskeletal: Reports Other (Lower lumbar back pain no visible contusions pain is tender horizontally across lower lumbar back is able to bend legs in bed to attempt to push self up); Denies Joint Pain or Edema
Skin: Denies Itching or Rash
Neurological: Denies Dizzy, Headache or Weakness
Endocrine: Reports No Symptoms
Hematologic/Lymphatic: Reports No Symptoms
Psych: Reports Calm
Physical Exam
Vital Signs
Vital Signs
Temp Pulse Resp BP Pulse Ox
98.5 F 70 18 141/80 99
08/17/24 10:14 08/17/24 13:30 08/17/24 13:30 08/17/24 13:30 08/17/24 13:30
Physical Exam
General: Comfortable and Conversant; No Fever or Chills
HEENT: NormoCephalic, Anicteric, Moist mucous membranes, Atraumatic, PERRLA, [place] Conjunctivae, No Ptosis, Neck Nontender and Other (Chronic slight slurred speech from 8 prior strokes)
Respiratory: Clear; No Wheezes, Rales or Rhonchi
Cardiac: S1/S2 and Regular Rhythm; No Murmur, Rub, Gallop or Peripheral Edema
Breast: Deferred by me
GI: Soft, Non Tender, Non Distended, Normal Bowel Sounds and No Hepatosplenomegaly
Rectal: Deferred by Provider
Genito-urinary: Deferred by me
Musculoskeletal: No Clubbing, No Cyanosis, No Edema and Other (Lower lumbar back pain no visible contusions pain is tender horizontally across lower lumbar back is able to bend legs in bed to attempt to push self up)
Skin: Warm and Dry; No Rash or Jaundice
Neuro: AO x 3, Nonfocal/grossly intact, Cranial Nerves Intact, No Sensory Deficits, Slurred Speech (Chronic slight) and Other (Lower lumbar back pain no visible contusions pain is tender horizontally across lower lumbar back is able to bend legs in
bed to attempt to push self up); No Facial Droop or Tremors
Psych: Calm
Laboratory Results
-
08/17/24 12:15
08/17/24 13:37
Impression/Plan
-
Impression/plan:
Observation MedSurg
#Mechanical fall with thoracic/lumbar back pain strain/contusion
-Lidoderm patch to lower lumbar back
-Will try Tylenol then tramadol moderate pain patient has reported itching with oxycodone
-May require halfway before being able to return home by self with only minimal aids at current time
-Check orthostatics
-Consult PT/OT/case management-patient currently has Medical waiver through [email or web address]( [place] named GLEN munguia per aid Kaela) has home care aides KAELA approximately 6 hours a day through [facility]' they will need to
be notified Kaela is the aide
Lumbar spine: No acute abnormalities.
No compression deformities.
Multilevel DDD within the lumbar spine
#Hx multiple CVAs x8 in the past with residual left-sided weakness/chronic left arm contracture to shoulder level/chronic speech difficulty with slight chronic slurring
#Chronic ambulatory dysfunction uses cane
-Continue Aggrenox 1 capsule twice daily, atorvastatin 80 mg at bedtime, Eliquis [address] head: 1. No acute intracranial abnormality
2. Unchanged chronic white matter disease
3. Small chronic infarct within the right ag radiata
#Chronic dysphagia/chronic impulsive inhaling food post strokes
-Per aide coughs after strokes
-Speech swallow eval
#HTN�benign
-Continue amlodipine 5 mg daily, lisinopril 20 mg daily with hold parameters
-Continue Toprol XL 25 mg twice daily with hold parameters did have history of Vasovagal syncope and was decreased to 25 twice daily in February 2024
#Paroxysmal A-fib
-Continue Eliquis 5 mg twice daily
-Continue metoprolol XL 25 mg twice daily
#CKD 3 A
Creat 1.2-appears baseline for patient
-Follow BMP
#Chronic heart failure preserved EF
-I/O, daily weights
-Continue Farxiga 10 mg daily
#HLD
-Continue statin
#DM 2
Accu-Cheks with SSI, check HgbA1c
-Patient reports recent blood work showed A1c of 6.4 which was 7
I spoke with patient's aide who states he is on metformin but does not have any Accu-Chek monitors at home and she has been with him for several years
#JOAQUÍN-noncompliant with CPAP
#History latent tuberculosis
-Continue isoniazid 300 mg at bedtime
#BPH
-Monitor urine output
-Continue finasteride
#Insomnia
-Continue temazepam 15 mg p.o. at bedtime
#Dry eyes
-Continue artificial tears as we do not have current Tyrvaya
DVT prophylaxis
Continue MANAGER STRATEGY Eliquis
Full code
--- NOTE | 2024-08-17 15:40 | EDRN ---
Urine spec obtained and sent at this time. Pt asked this RN to update caregiver and I did on phone.
--- NOTE | 2024-08-17 15:41 | EDRN ---
Asher Haq PHARMACIST CRITICAL CARE in room w/ pt at this time.
[2024-08-17 15:46] LABS: Urine Albumin Negative (Neg - Trace); Urine Bilirubin Negative (Negative); Urine Character Clear (Clear); Urine Color Yellow; Urine Glucose 3+ (Negative); Urine Ketone Negative (Negative); Urine Leukocyte Negative (Negative); Urine Nitrite Negative (Negative); Urine Occult Blood Negative (Negative); Urine Urobilinogen Negative (Neg - 1+)
[2024-08-17] MEDS: LIDOCAINE 4% PATCH 1 PATCH TOPICAL (16:55)
--- NOTE | 2024-08-17 17:05 | EDRN ---
Pt given a diet diamond vy at this time.
--- NOTE | 2024-08-17 17:13 | W.PN.UPDATE ---
Update Note
Progress Note Update
This is an addendum to the H&P written by Kia Ayala on 08/17/2024.� Patient seen and examined independently with [employer].
69-year-old male past medical history of 7 CVAs in the past with residual left-sided weakness/speech difficulties, paroxysmal atrial fibrillation on Eliquis, HFpEF, CKD 3A, hypertension, hyperlipidemia, diabetes, sleep apnea, obesity, arthritis,
constipation, latent tuberculosis, BPH, presenting with fall with mild low back pain since and recent falls.
Patient with�COVID last week.
CT head, lumbar spine x-ray, unremarkable.� Patient with likely deconditioning from recent COVID.� PT/OT.�
--- NOTE | 2024-08-17 18:05 | EDRN ---
Diet tray of chicken breast sandwich, tomato soup and coffee ordered for pt at this time.
[2024-08-17 18:29] LABS: COVID-19 Antigen Negative (Negative)
[2024-08-17 18:30] VITALS: BP 162/97
[2024-08-17 21:20] VITALS: BP 109/66; BMI 36.8
[2024-08-17 21:35] LABS: Glucose - Point of Care 122 mg/dl (70-99)
[2024-08-17 21:48] VITALS: BMI 36.8
[2024-08-17] MEDS: ELIQUIS 5 MG PO (22:49)
[2024-08-17] MEDS: VITAMIN B-6 50 MG PO (22:49)
[2024-08-17] MEDS: RESTORIL 15 MG PO (22:49)
[2024-08-17] MEDS: INH 300 MG PO (22:50)
[2024-08-17] MEDS: AGGRENOX 1 CAPSULE PO (22:50)
[2024-08-17] MEDS: TOPROL XL 25 MG PO (22:51)
[2024-08-17 23:00] VITALS: BP 124/88
[2024-08-18 07:08] LABS: Glucose - Point of Care 96 mg/dl (70-99)
[2024-08-18 07:22] LABS: % Basophils 0.7 % (0-2); % Eosinophils 3.3 % (0-6); % Immature Granulocytes 0.2 % (0-0.5); % Lymphocytes 28.5 % (20.5-51.1); % Monocytes 8.3 % (1.7-9.3); Absolute Eosinophils 0.2 10^3/uL (0-0.7); Absolute Lymphocytes 1.8 10^3/uL (1.2-3.4); Absolute Monocytes 0.5 10^3/uL (0.1-0.6); Absolute Neutrophils 3.6 10^3/uL (1.4-6.5); Hematocrit 40.9 % (39.0-52.0); Hemoglobin 14.5 g/dL (13.0-18.0); Mean Corp Hgb Conc. 35.5 g/dL (33.0-37.0); Mean Corpuscular Hgb 31.6 pg (27.0-31.0); Mean Corpuscular Volume 89.1 fL (80.0-94.0); Mean Platelet Volume 10.2 fL (7.4-10.4); Nucleated Red Blood Cells % 0 % (-); Platelet Count 151 10^3/uL (130-400); Red Blood Cell Count 4.59 10^6/uL (4.70-6.10); Red Cell Dist. Width 12.8 % (11.5-14.5); White Blood Cell Count 6.2 10^3/uL (4.8-10.8)
[2024-08-18 07:25] VITALS: BP 134/86
[2024-08-18 07:57] LABS: ALT (SGPT) 32 U/L (0-50); AST (SGOT) 24 U/L (17-59); Albumin 4.1 g/dl (3.5-5.0); Alkaline Phosphatase 42 U/L (38-126); Blood Urea Nitrogen 30 mg/dl (9-20); Calcium 9.1 mg/dl (8.4-10.2); Carbon Dioxide 24 mmol/L (22-30); Chloride 104 mmol/L (98-107); Estimated Creatinine Clearance 79 ml/min; Glucose 95 mg/dl (70-99); Potassium 4.3 mmol/L (3.5-5.1); Sodium 139 mmol/L (135-145); Total Protein 6.5 g/dl (6.3-8.2); eGFR > 60.00
[2024-08-18] MEDS: TOPROL XL 25 MG PO (08:22)
[2024-08-18] MEDS: LIDOCAINE 4% PATCH 1 PATCH TOPICAL (08:22)
[2024-08-18] MEDS: ZESTRIL 20 MG PO (08:23)
[2024-08-18] MEDS: AGGRENOX 1 CAPSULE PO (08:23)
[2024-08-18] MEDS: ELIQUIS 5 MG PO (08:23)
[2024-08-18] MEDS: NORVASC 5 MG PO (08:23)
[2024-08-18] MEDS: LIPITOR 80 MG PO (08:23)
[2024-08-18] MEDS: COLACE 100 MG PO (08:23)
[2024-08-18] MEDS: GLUCOPHAGE 500 MG PO (08:23)
[2024-08-18] MEDS: FARXIGA 10 MG PO (08:23)
[2024-08-18] MEDS: PROSCAR 5 MG PO (08:23)
[2024-08-18] MEDS: ULTRAM 50 MG PO (08:25)
[2024-08-18 09:04] VITALS: BP 145/85; PULSE 70
[2024-08-18 09:05] VITALS: BP 145/85; PULSE 70
--- NOTE | 2024-08-18 09:22 | W.PN.HOSP.TC ---
Addendum entered and electronically signed by Jacky Tripathi DO 08/18/24 13:53:
Orthostatic hypotension noted on vital sign check.
I spoke with patient on the phone and recommend compression stockings with 20 to 30 mm Hg pressure.
Patient demonstrated understanding, all questions answered.
Follow-up with PCP this coming week.
Original Note:
Today's Communication/Plan
-
Orthostatic vitals
Discharge
Assessment / Plan
Assessment / Plan
Gen-AAOx3, NAD
HEENT-NC, AT, anicteric, clear oral mm
Neck-supple
CV-reg, no M, +S1/S2
Lungs-clear B/L
Abd-soft, NT, ND
Ext-no edema
Musculoskeletal-no cyanosis, clubbing, tender lumbar paraspinal muscles
Skin-warm and dry
Neuro-grossly non-focal
Psych-calm, cooperative
Musculoskeletal back pain - lumbar paraspinal muscles. Likely due to muscle spasms, deconditioning, obesity, sedentary lifestyle. Muscle stretching exercises recommended. Brief trial of anti-inflammatory.
PT/OT.
X-ray negative for fracture.
Ambulatory dysfunction with fall -check orthostatic vitals, await PT input. Ambulates with 4 point cane. Lives alone but has an aide Tuesday through Tuesday. Does not drive.
History of multiple strokes -residual left-sided weakness, speech difficulties.
Chronic heart failure preserved EF -stable.
Essential hypertension
Hyperlipidemia -atorvastatin.
Paroxysmal atrial fibrillation - continue Eliquis.
DM2 without hyperglycemia
Latent tuberculosis -on isoniazid.
Obesity due to excess calories
Full code
Dispo -anticipate discharge home today. Follow-up with PCP next week.
32 minutes spent in discharge process.
Anticipated Discharge: Today
Subjective/Interval History
-
Date of Service: August 18, 2024
Patient seen and examined, complaining of lumbar back pain with radiation upwards.
Objective Data
-
Labs:
Laboratory Results
08/18/24
07:09
WBC 6.2
Hgb 14.5
Hct 40.9
Plt Count 151
Sodium 139
Potassium 4.3
Chloride 104
Carbon Dioxide 24
BUN 30 H
Creatinine 1.2
Glucose 95
Calcium 9.1
Total Bilirubin 1.0
AST 24
ALT 32
Alkaline Phosphatase 42
Vital Signs:
Vital Signs
Temp Pulse Resp BP Pulse Ox
97.6 F 62 18 134/76 97
08/17/24 23:00 08/18/24 08:22 08/17/24 23:00 08/18/24 08:22 08/17/24 23:00
I&O
08/17/24 08/18/24 08/19/24
06:59 06:59 06:59
Intake Total 480 / 480
Output Total 850 / 850
Balance -850 / -850 480 / 480
Review of Systems
-
History Source: Patient
All other systems: Reviewed and negative
--- NOTE | 2024-08-18 09:31 | W.DS.TRANS ---
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
-
Discharge Instructions:
Discharge Diagnosis/Procedures Fall, ambulatory dysfunction, lumbar paraspinal
muscle spasm
Diet Low Cholesterol,Low Fat,Diabetic, Carb
Controlled
Activity With assistance,As tolerated
Driving Restrictions No driving
Bathing Restrictions None
Instructions:
Stand-Alone Forms:
Changes to Home Medications: No
Discharge Medications:
DC Medications w/original date entered in [facility]
atorvastatin 80 mg tablet 80 mg PO DAILY High cholesterol 02/04/19
finasteride 5 mg tablet 5 mg PO DAILY prostate 02/04/19
apixaban 5 mg tablet (Eliquis) 5 mg PO BID Blood clot prevention/tx 04/08/20
docusate sodium 100 mg capsule 100 mg PO DAILY Constipation 04/08/20
amlodipine 5 mg tablet 5 mg PO DAILY Blood Pressure 11/10/23
dapagliflozin propanediol 10 mg tablet (Farxiga) 10 mg PO DAILY Diabetes 11/10/23
isoniazid 300 mg tablet 300 mg PO HS Infection 11/10/23
lisinopril 40 mg tablet 20 mg PO DAILY Blood Pressure 11/10/23
pyridoxine (vitamin B6) 50 mg tablet 50 mg PO HS Supplement 11/10/23
varenicline tartrate 0.03 mg/spray metered nasal spray (Tyrvaya) 1 spray intranasal Q12H PRN dry eyes 11/10/23
metoprolol succinate 25 mg tablet,extended release 24 hr (Toprol XL) 25 mg PO BID #60 tabs 03/22/24
aspirin 25 mg-dipyridamole 200 mg capsule,ext.release 12 hr multiphase 1 cap PO BID 08/17/24
metformin 500 mg tablet 500 mg PO DAILY 08/17/24
temazepam 15 mg capsule 15 mg PO HS 08/17/24
lidocaine 4 % topical patch 1 patch topical DAILY #10 ea 08/18/24
tramadol 50 mg tablet 50 mg PO Q6HPRN PRN severe pain #20 tabs 08/18/24
Home Medication Changes
Pending Results: No
[2024-08-18 09:52] VITALS: BP 111/71; BP 130/83; BP 148/83; PULSE 70; PULSE 73; PULSE 85
--- NOTE | 2024-08-18 10:06 | CM ---
CM following re: discharge planning.
Reviewed pt's chart, met with pt.
Pt is a 69 year old male, admitted with OBS status and primary dx of Musculoskeletal back pain - lumbar paraspinal muscles. OBS status explained to the pt, pt expressed his understanding, PINEDA letter signed, placed on chart, pt has a copy.
Pt reports he lives alone in a trailer, no steps, there is a ramp, has a son who lives in [place]. Pt reports he has caregiver services 5 days per week, 5-6 hours per day. 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
needed.
PT evaluation noted - outpatient PT vs no needs recommended. pt stated he does not need outpatient PT and his caregiver helps as needed.
Discharge order noted. Pt is aware and he stated he will take a LYFT to get home.
D/C plan: home with resumptions of caregiver services. Pt will get home by LYFT.
--- NOTE | 2024-08-18 10:31 | PTOTSP ---
Speech Pathology
Clinical Swallow Evaluation
69M with admission for fall. Had COVID last week. History of x8 CVAs with residual LUE weakness and speech difficulties. Per H&P, caregiver notes intermittent coughing with food due to impulsivity.
Presents with clinical s/s of a mild oropharyngeal dysphagia, consistent with video swallow study performed on 11/11/23. No overt s/s of aspiration or penetration demonstrated this date. Requires verbal cues to implement known safe swallowing
strategies from previous VSE.
Recommended outpatient speech therapy at the next level of care to work on implementing safe swallowing strategies given current concerns for aspiration within the home. Pt declined, stated that he just needs to 'go slow.' Able to recall safe
swallowing strategies by the end of session with verbal cues for recall
Recommend:
1. Regular textures (IDDSI 7), thin liquids
2. Meds as best tolerated
3. Aspiration precautions: sit upright, slow rate, single cup sips with use of chin tuck or head turn L, intermittent throat clear/reswallow
4. Outpatient speech therapy as needed; discharge planned for today
[2024-08-18 11:40] VITALS: BP 125/80
[2024-08-18 13:22] LABS: Glycohemoglobin (HgbA1c) 6.2 % (4.0-5.6)
== END 2024-08-18 12:56 | disposition home or self-care (01) ==
LOC: 4 EAST ACU 16:55
PROVIDERS: Clinical Nurse Specialist Family Health; Physician Assistant; ADMITTING PHYSICIAN Hospitalist; ATTENDING PHYSICIAN Hospitalist; EMERGENCY PHYSICIAN Emergency Medicine; FAMILY PHYSICIAN Nurse Practitioner Primary Care
DX: S39.012A Strain of muscle, fascia and tendon of lower back, initial encounter (principal); M51.360 Other intervertebral disc degeneration, lumbar region with discogenic back pain only; R26.2 Difficulty in walking, not elsewhere classified; M62.830 Muscle spasm of back; I13.0 Hypertensive heart and chronic kidney disease with heart failure and stage 1 through stage 4 chronic kidney disease, or unspecified chronic kidney disease; N18.31 Chronic kidney disease, stage 3a; I50.32 Chronic diastolic (congestive) heart failure; H91.90 Unspecified hearing loss, unspecified ear; G89.29 Other chronic pain; I69.354 Hemiplegia and hemiparesis following cerebral infarction affecting left non-dominant side; E78.00 Pure hypercholesterolemia, unspecified; E66.01 Morbid (severe) obesity due to excess calories; G47.33 Obstructive sleep apnea (adult) (pediatric); R13.10 Dysphagia, unspecified; N40.0 Benign prostatic hyperplasia without lower urinary tract symptoms; G47.00 Insomnia, unspecified; R90.82 White matter disease, unspecified; I95.1 Orthostatic hypotension; R47.9 Unspecified speech disturbances; R68.89 Other general symptoms and signs; I48.0 Paroxysmal atrial fibrillation; E11.22 Type 2 diabetes mellitus with diabetic chronic kidney disease; W01.0XXA Fall on same level from slipping, tripping and stumbling without subsequent striking against object, initial encounter; Y93.89 Activity, other specified; Y92.000 Kitchen of unspecified non-institutional (private) residence as the place of occurrence of the external cause; Z87.442 Personal history of urinary calculi; Z79.01 Long term (current) use of anticoagulants; Z68.36 Body mass index [BMI] 36.0-36.9, adult; Z90.49 Acquired absence of other specified parts of digestive tract; Z96.653 Presence of artificial knee joint, bilateral; Z60.2 Problems related to living alone; Z56.0 Unemployment, unspecified; Z91.199 Patient's noncompliance with other medical treatment and regimen due to unspecified reason; Z86.16 Personal history of COVID-19; Z86.15 Personal history of latent tuberculosis infection; Z88.5 Allergy status to narcotic agent; Z79.84 Long term (current) use of oral hypoglycemic drugs; Z79.82 Long term (current) use of aspirin; Z79.02 Long term (current) use of antithrombotics/antiplatelets; Z11.52 Encounter for screening for COVID-19
CPT/HCPCS: 70450; 72100; 80048; 80053; 81003; 82962; 83036; 85025; 87502; 87811; 92610; 97116; 97161; 97165; 99285; G0378

== ENCOUNTER → 2024-08-23 12:12 | Outpatient (REF) | payer MEDICARE, SELFPAY | LOC: RAD 12:12 | PROVIDERS: ATTENDING PHYSICIAN Nurse Practitioner Primary Care | DX: S20.212A Contusion of left front wall of thorax, initial encounter (principal) | CPT/HCPCS: 71101 ==

== ENCOUNTER 2024-09-18 12:05 | Outpatient (RCR) | payer MEDICARE, SELFPAY | END 2024-09-18 23:59 | disposition home or self-care (01) | LOC: RPT 12:05 | PROVIDERS: ATTENDING PHYSICIAN Nurse Practitioner Primary Care | DX: S20.212D Contusion of left front wall of thorax, subsequent encounter (principal); Z73.6 Limitation of activities due to disability; R26.89 Other abnormalities of gait and mobility; M54.50 Low back pain, unspecified; R29.6 Repeated falls | CPT/HCPCS: 97110; 97140; 97162; 97530 ==

== ENCOUNTER 2024-10-18 09:59 | Outpatient (RCR) | payer MEDICARE, SELFPAY | END 2024-10-18 23:59 | disposition home or self-care (01) | LOC: RPT 09:59 | PROVIDERS: ATTENDING PHYSICIAN Nurse Practitioner Primary Care | DX: S20.212D Contusion of left front wall of thorax, subsequent encounter (principal); R26.89 Other abnormalities of gait and mobility; M54.50 Low back pain, unspecified; R29.6 Repeated falls; Z73.6 Limitation of activities due to disability | CPT/HCPCS: 97110; 97112; 97140 ==

== ENCOUNTER 2024-10-25 08:58 | Outpatient (RCR) | payer MEDICARE, SELFPAY | END 2024-10-25 10:17 | disposition home or self-care (01) | LOC: RPT 08:58 | PROVIDERS: ATTENDING PHYSICIAN Nurse Practitioner Primary Care | DX: S20.212D Contusion of left front wall of thorax, subsequent encounter (principal); R26.89 Other abnormalities of gait and mobility; M54.50 Low back pain, unspecified; R29.6 Repeated falls; Z73.6 Limitation of activities due to disability | CPT/HCPCS: 97110; 97140; 97530 ==

== ENCOUNTER 2025-05-15 07:40 | Outpatient (RCR) | payer MEDICARE, SELFPAY | END 2025-05-15 23:59 | disposition home or self-care (01) | LOC: RPT 07:40 | PROVIDERS: ATTENDING PHYSICIAN Nurse Practitioner Primary Care | DX: I69.354 Hemiplegia and hemiparesis following cerebral infarction affecting left non-dominant side (principal); Z73.6 Limitation of activities due to disability; M54.50 Low back pain, unspecified; M54.2 Cervicalgia | CPT/HCPCS: 97110; 97112; 97162; 97530 ==

== ENCOUNTER 2025-06-14 08:20 | Outpatient (RCR) | payer MEDICARE, SELFPAY | END 2025-06-14 23:59 | disposition home or self-care (01) | LOC: ROT 08:20 | PROVIDERS: ATTENDING PHYSICIAN Nurse Practitioner Primary Care | DX: I69.354 Hemiplegia and hemiparesis following cerebral infarction affecting left non-dominant side (principal); Z73.6 Limitation of activities due to disability; M54.50 Low back pain, unspecified; M54.2 Cervicalgia | CPT/HCPCS: 97010; 97110; 97112; 97140; 97167; 97530 ==

== ENCOUNTER 2025-07-03 15:03 | Emergency (ER) | payer MEDICARE, SELFPAY ==
[2025-07-03 15:14] VITALS: BP 99/54
[2025-07-03 15:52] LABS: Hematocrit 42.4 % (39.0-52.0); Hemoglobin 15.0 g/dL (13.0-18.0); Mean Corp Hgb Conc. 35.4 g/dL (33.0-37.0); Mean Corpuscular Volume 86.2 fL (80.0-94.0); Nucleated Red Blood Cells % 0 % (-); Platelet Count 214 10^3/uL (130-400); Red Cell Dist. Width 12.9 % (11.5-14.5)
[2025-07-03 16:03] LABS: ALT (SGPT) 22 U/L (0-50); AST (SGOT) 21 U/L (17-59); Albumin 4.5 g/dl (3.5-5.0); Alkaline Phosphatase 45 U/L (38-126); Blood Urea Nitrogen 43 mg/dl (9-20); Calcium 9.7 mg/dl (8.4-10.2); Carbon Dioxide 23 mmol/L (22-30); Chloride 104 mmol/L (98-107); Glucose 146 mg/dl (70-99); Potassium 4.4 mmol/L (3.5-5.1); Sodium 137 mmol/L (135-145); Total Protein 7.2 g/dl (6.3-8.2); eGFR 35.24
[2025-07-03 16:09] LABS: Troponin I 0.017 ng/ml
--- NOTE | 2025-07-03 18:51 | ED.GENMED ---
History of Present Illness
General
Chief Complaint: Blood Pressure Problem
Source: patient
Time Seen by Provider: 07/03/25 18:38
History of Present Illness
History of Present Illness:
70-year-old male with past medical history of previous CVA, atrial fibrillation, CHF, hypertension, hyperlipidemia, reported renal insufficiency presenting to the emergency department from physical therapy after he was there as part of his treatment
for previous CVAs when he became suddenly near syncopal, diaphoretic and found to be hypotensive with a blood pressure of 80/42. Patient states that since that time he feels back to his usual self and is otherwise asymptomatic. He reports that he
ate and drank well today. Denies any fevers or infectious symptoms. No current pain.
Past History
Past History
ED Past Medical History: CVA, HTN, Hypercholesterolemia, NIDDM and Other (Obstructive sleep apnea, morbid obesity, arthritis, constipation)
ED Past Surgical History: Appendectomy ( with Peritonitis), Orthopedic (Left knee total knee replacement, right total knee replacement) and Other (Hernia repair)
Social History
Tobacco: Non-smoker (Cigar once a month)
Alcohol: None
Drug: None
Personal:
Living: alone
Employment: Not employed
Family History
Family History: Other (Noncontributory)
Review of Systems
Review of Systems
All Other Systems: ROS reviewed and negative except as documented in HPI and ROS
Phy Exam
Physical Exam
Physical Exam:
GENERAL: Alert , in no apparent distress
HEAD: Normocephalic atraumatic
EYE: conjunctiva clear
NECK: Supple
ENT: o/p clr, mmm.
CARDIAC: Regular rate and rhythm
LUNGS: Clear breath sounds bilaterally, no acute respiratory distress, no wheezes/rales/rhonchi
NEUROLOGICAL: Alert and oriented
SKIN: Warm and dry, skin intact.
MUSCULOSKELETAL: well perfused.
PSYCH: Normal and appropriate interaction.
Scores
Heart Failure Risk
Heart Failure Risk Score: Not Applicable
Heart Score for Chest Pain Patients
STEMI patient?: Not applicable
Withdrawal Assessment of Alcohol
Withdrawal Assessment Completed?: Not applicable
Course
Orders/Labs/Results
Orders:
Orders
07/03/25 15:18
Electrocardiogram (*1) Urgent
Reason for Study: Vertigo / Dizzy
07/03/25 15:19
EKG- Treatment ONCE
07/03/25 15:33
Complete Blood Count/With Diff Urgent
Comprehensive Metabolic Panel Urgent
Troponin I Urgent
07/03/25 18:38
Orthostatic VS- Treatment ONCE
0.9% Sodium Chloride 1000 ml [Nss] 1,000 ml IV BOLUS
Abnormal Lab Results
07/03/25
15:33
BUN 43 H mg/dl
(9-20)
Creatinine 2.0 H mg/dL
(0.7-1.3)
Glucose 146 H mg/dl
(70-99)
07/03/25 15:33
07/03/25 15:33
Vital Signs
Initial and Last Documented VS:
Initial Vital Signs
Temp Pulse Resp BP Pulse Ox
97.8 F 72 16 99/54 93
07/03/25 15:14 07/03/25 15:14 07/03/25 15:14 07/03/25 15:14 07/03/25 15:14
Last Documented Vital Signs
Temp Pulse Resp BP Pulse Ox
97.8 F 64 17 145/98 96
07/03/25 15:14 07/03/25 21:49 07/03/25 21:49 07/03/25 21:49 07/03/25 21:49
MDM/Problems Addressed
Differential Diagnosis Includes:
Orthostasis
Vagal event
Cardiac Arrhythmia
Valvular dysfunction
DELLA
Electrolyte Imbalance
MDM/Problems Addressed:
70-year-old male presenting to the ER for evaluation after a near syncopal event, found to be hypotensive, asymptomatic by time of arrival here. Patient's blood pressure is still little bit on the hypotensive side. He is otherwise hemodynamically
stable, ambulatory and in no acute distress. Labs initiated on arrival do show a BUN of 43 and a creatinine of 2 likely signifying prerenal dehydration. Given patient's bump in creatinine I did recommend admission to trend his creatinine however
patient declines this. Will treat here with 1 L of normal saline. Plan to notify primary care provider to help arrange for outpatient follow-up.
*Pulse Oximetry
SaO2: 93
Oxygen Mode of Delivery: Room air
Patient hypoxic: no
*EKG
Heart Rate: 66
Rate: normal
Rhythm: sinus
Brashear: left axis deviation
Interval: first degree heart block
*Correction Officer Head Interpretation
Rate: normal
Heart Rate: 73
Rhythm: sinus
*Critical Care Note
Total Time (30-74mins, 75-104mins- exclusive of procedures): Not Applicable
Data Reviewed
Review of Other/Old Records Reveals: Labs and Records
Patient Management
Discussion with other providers: PCP
Escalation/DeEscalation of care consider admission/obs:
6:53 PM: I did notify patient's primary care provider about his workup here as well as my recommendation that patient stay for trending of his renal function however that he declined. Patient will need repeat labs within 1 week to ensure resolution
of his renal dysfunction. Patient aware of return precautions to the ER but otherwise stable to be discharged pending completion of his IV fluids.
ED Attending Note
-
Portions of this chart may have been created with voice recognition software.� Occasional wrong word or��sound alike� substitutions may have occurred due to the inherent limitations of voice recognition software.
Discharge Plan
Departure
Patient Disposition: Home (Routine Discharge)
Date of Disposition: 07/03/25
Time of Disposition: 20:37
Patient with high blood pressure during this ER visit?: No
Discharge Problem:
Orthostasis, DELLA (acute kidney injury)
Instructions: Acute kidney injury
Prescriptions:
No Action
atorvastatin 80 MG tablet
80 mg PO DAILY
finasteride 5 MG tablet
5 mg PO DAILY
Eliquis 5 MG tablet
5 mg PO BID
docusate sodium 100 MG capsule
100 mg PO DAILY
amlodipine 5 mg Tablet
5 mg PO DAILY
isoniazid 300 mg Tablet
300 mg PO HS
pyridoxine (vitamin B6) 50 mg tablet
50 mg PO HS
lisinopril 40 mg Tablet
20 mg PO DAILY
dapagliflozin propanediol [Farxiga] 10 mg Tablet
10 mg PO DAILY
Tyrvaya 0.03 mg/spray [place], Metered, Non-Aerosol
1 spray INTRANASAL Q12H PRN (Reason: dry eyes)
metoprolol succinate [Toprol XL] 25 mg tablet extended release 24 hr
25 mg PO BID Qty: 60 0RF
metformin 500 mg Tablet
500 mg PO DAILY
aspirin-dipyridamole 25-200 mg Capsule, Er Multiphase 12 Hr
1 cap PO BID
temazepam 15 mg Capsule
15 mg PO HS
lidocaine 4 % Adhesive Patch,Medicated
1 patch topical DAILY Qty: 10 0RF
tramadol 50 mg Tablet
50 mg PO Q6HPRN PRN (Reason: severe pain) Qty: 20 0RF
Referrals:
Doris Claudio CRNP [Family Provider, Internal Medicine]
Interventions
Interventions:
*Risk Screen - Suicide Last Done: 07/03/25 15:17
*General Assessment Last Done: 07/03/25 19:15
*Neglect/Abuse Screening Last Done: 07/03/25 15:17
*ED COVID-19 Vaccine History Last Done: 07/03/25 19:15
*ED Influenza Vaccine History Last Done: 07/03/25 19:15
[facility] Fall Risk Assessment Tool Last Done: 07/03/25 19:17
*Nursing Disposition Last Done: 07/03/25 22:08
ED- Cardiac Assessment Last Done: 07/03/25 19:38
ED- Neurological Assessment Last Done: 07/03/25 19:38
ED- Pulmonary Assessment Last Done: 07/03/25 19:38
Discharge Date and Time
Discharge Date/Time: 07/03/25 22:08
Print Language: [place]
[2025-07-03 19:17] VITALS: BMI 37.0
[2025-07-03 19:19] VITALS: BP 111/68
[2025-07-03 19:23] VITALS: BP 110/72; BP 114/73; BP 96/73; PULSE 63; PULSE 76; PULSE 80
[2025-07-03 20:02] VITALS: BP 116/64
[2025-07-03] MEDS: NSS 1000 IV (20:02)
[2025-07-03 21:17] VITALS: BP 142/84
[2025-07-03 21:49] VITALS: BP 145/98
== END 2025-07-03 22:08 | disposition home or self-care (01) ==
LOC: EMR 15:03
PROVIDERS: Emergency Medicine; EMERGENCY PHYSICIAN Student in an Organized Health Care Education/Training Program; FAMILY PHYSICIAN Nurse Practitioner Primary Care
DX: I95.1 Orthostatic hypotension (principal); N17.9 Acute kidney failure, unspecified; I48.91 Unspecified atrial fibrillation; I11.0 Hypertensive heart disease with heart failure; I50.9 Heart failure, unspecified; E11.29 Type 2 diabetes mellitus with other diabetic kidney complication; E78.00 Pure hypercholesterolemia, unspecified; Z72.0 Tobacco use; Z86.73 Personal history of transient ischemic attack (TIA), and cerebral infarction without residual deficits; Z90.49 Acquired absence of other specified parts of digestive tract
CPT/HCPCS: 99284; 96360; 80053; 84484; 85025; 93005

== ENCOUNTER 2025-07-24 12:39 | Outpatient (RCR) | payer MEDICARE, SELFPAY | END 2025-07-24 23:59 | disposition home or self-care (01) | LOC: ROT 12:39 | PROVIDERS: ATTENDING PHYSICIAN Nurse Practitioner Primary Care | DX: I69.354 Hemiplegia and hemiparesis following cerebral infarction affecting left non-dominant side (principal); M54.50 Low back pain, unspecified; M54.2 Cervicalgia; Z73.6 Limitation of activities due to disability | CPT/HCPCS: 97010; 97110; 97112; 97140; 97530; 97535 ==